=== PATIENT | male | born 1955 | race Caucasian/White ===

== ENCOUNTER 2018-03-25 12:44 | Emergency (ER) | payer OTHER, SELFPAY ==
[2018-03-25] VITALS (7 sets, daily range): BP systolic 92–139; BP diastolic 74–89; PULSE 58–93; RESP 16–19; TEMP 36.5; O2SAT 94–100; BMI 32.1
--- NOTE | 2018-03-25 12:51 | DI.RAD.S_ITS ---
PROCEDURE: XR CHEST 1V INDICATIONS: chest pain TECHNIQUE: One view of the chest was acquired. COMPARISON: [facility], , CHEST 1 VIEW, 02/04/2016, 0:28. FINDINGS: Surgical changes and devices: None. Lungs and pleura: Lungs are clear. No pleural effusions or pneumothorax. Mediastinum: Mediastinal contours appear normal. Heart size is normal. Bones and chest wall: No suspicious bony lesions. Overlying soft tissues appear unremarkable. IMPRESSION: Reduction of inspiratory volume, mild crowding of the bronchovascular markings, a source of chest pain is not seen. Dictated by: Luis Angel Ashley M.D. on 03/25/2018 at 13:25 Approved by: Luis Angel Ashley M.D. on 03/25/2018 at 13:26
--- NOTE | 2018-03-25 13:07 | ED.CHESTPAIN ---
HPI - Chest Pain General Chief Complaint: Chest Pain Stated Complaint: CHEST HEAVINESS Time Seen by Provider: 03/25/18 13:00 Source: patient and family Mode of arrival: ambulatory Limitations: no limitations History of Present Illness HPI narrative: 62-year-old male, nonsmoker with history of hypertension and hyperlipidemia presents with his in the chief complaint of retrosternal chest pain which started this afternoon while shoveling snow. He complains of 4/10 pressure like pain that radiates to his right shoulder in the absence of other cardiac equivalent such as nausea, diaphoresis or vomiting. He had recently had an outpatient physical which noted an elevated cardiac CRP at which point his (a nurse) requested the patient be placed on aspirin, have access to nitroglycerin, and gain a cardiac referral. Patient took 2 nitros prior to arrival and had resolution of symptoms The patient has never had a heart catheterization or stent and his last stress test was many years ago. The patient has been asymptomatic since walking through the door. MD complaint: chest pain Onset (ago): hour(s) Duration: now resolved Onset: during exertion Pain location: substernal Severity: moderate Severity scale (1-10): 4 Quality: tightness Pain radiation: back Relieving factors: nitroglycerin and rest Exacerbating factors: exertion Treatments prior to arrival chest pain: aspirin and nitroglycerin Related Data Home Medications Medication Instructions Recorded Confirmed Vitamin D3 1 tab PO DAILY 03/25/18 03/25/18 allopurinol 300 mg PO DAILY 03/25/18 03/25/18 aspirin 81 mg PO DAILY 03/25/18 03/25/18 hydrochlorothiazide 25 mg PO DAILY 03/25/18 03/25/18 krill oil 1 cap PO DAILY 03/25/18 03/25/18 lisinopril 40 mg PO DAILY 03/25/18 03/25/18 simvastatin 40 mg PO BEDTIME 03/25/18 03/25/18 turmeric 1 tab PO DAILY 03/25/18 03/25/18 Allergies Allergy/AdvReac Type Severity Reaction Status Date / Time No Known Drug Allergies Allergy Verified 03/25/18 12:48 Review of Systems Constitutional Denies chills, Denies fever(s), Denies lethargy and Denies weakness Eyes Denies change in vision, Denies eye discharge, Denies irritation and Denies loss of vision ENT Ears, Nose, Mouth, and Throat: Denies change in voice, Denies neck pain and Denies sore throat Cardiovascular Reports chest pain, Denies irregular heart rhythm, Denies lightheadedness, Denies palpitations, Denies dyspnea, Denies dyspnea on exertion and Denies orthopnea Respiratory Denies cough, Denies dyspnea, Denies dyspnea on exertion and Denies wheezing Gastrointestinal Gastrointestinal: Denies abdominal pain, Denies change in bowel habits, Denies diarrhea, Denies nausea and Denies vomiting Genitourinary Denies hematuria, Denies flank pain, Denies urinary incontinence and Denies urinary urgency Musculoskeletal Denies neck pain Integumentary/Breasts Denies pruritus, Denies erythema, Denies rash and Denies wounds Neurologic Denies confusion, Denies loss of vision and Denies weakness Psychiatric Denies anxiety, Denies confusion, Denies depression, Denies homicidal ideation and Denies suicidal ideation Endocrine Denies palpitations Hematologic/Lymphatic Denies easy bruising Allergic/Immunologic Denies wheezing PFSH Social History Smoking Status: Never smoker Social History Smoking Status: Never smoker Exam Narrative Exam Narrative: GENERAL: This is a well-nourished, well-developed patient, in mild distress. HEAD: Atraumatic. Normocephalic. No temporal or scalp tenderness. EYES: Pupils equal round and reactive. Extraocular motions intact. No scleral icterus. No injection or drainage. ENT: Nose without bleeding, purulent drainage or septal hematoma. Throat without erythema, tonsillar hypertrophy or exudate. Uvula midline. Airway patent. NECK: Trachea midline. No JVD or lymphadenopathy. Supple, nontender, no meningeal signs. CARDIOVASCULAR: Regular rate and rhythm without murmurs, gallops, or rubs. RESPIRATORY: Clear to auscultation. Breath sounds equal bilaterally. No wheezes, rales, or rhonchi. GASTROINTESTINAL: Abdomen soft, non-tender, nondistended. No hepato-splenomegaly, or palpable masses. No guarding. EXTREMITIES: No clubbing, cyanosis, or edema. No joint tenderness, effusion, or edema noted. BACK: Nontender without deformity or crepitance. No flank tenderness. NEURO: AOx3. SKIN: No rash or erythema. Initial Vital Signs Initial Vital Signs: Vital Signs Temperature 97.7 F 03/25/18 12:48 Pulse Rate 93 H 03/25/18 12:48 Respiratory Rate 16 03/25/18 12:48 Blood Pressure 139/82 03/25/18 12:48 Pulse Oximetry 95 03/25/18 12:48 Scores HEART Score Heart Score history: Highly Suspicious Heart Score EKG: Normal Heart Score Age: 45-64 years old Heart Score risk factors: 1-2 risk factors Heart Score troponin: < or = to normal limit Heart Score Total: 4 Course Orders Ordered: ED Orders 03/25/18 12:50 EKG-12 Lead Routine EKG-12 Lead Stat 03/25/18 12:51 XR chest 1V Stat 03/25/18 13:10 Complete Blood Count AUTO DIFF Stat Comprehensive Metabolic Panel Stat Lipase Stat Partial Thromboplastin Time Stat Prothrombin Time INR Stat Troponin & CK Cardiac Panel Stat 03/25/18 15:40 Troponin I Stat Discontinued Medications Aspirin (Aspirin Chew) 324 mg PO NOW ONE Stop: 03/25/18 13:33 Last Admin: 03/25/18 14:07 Dose: 324 mg Metoprolol Tartrate (Lopressor) 5 mg IV Q5M [facility] Stop: 03/25/18 13:56 Last Admin: 03/25/18 14:30 Dose: Not Given Admin: 03/25/18 14:30 Dose: Not Given Admin: 03/25/18 14:30 Dose: 5 mg Reevaluation(s) Reevaluation #1: Patient continues to have no pain in the emergency department. After normal EKG and initial troponin in normal range a call was placed to our hospitalist whom promptly accepted the patient. A secondary call to [place] is placed and they request the patient be transferred to 1 of their contracted facilities. They have arranged for the patient to be transferred to [place] in [place] and will be transported by ALS for cardiac monitoring. The patient remains chest pain-free Vital Signs - 8 hr 03/25/18 12:48 03/25/18 14:00 03/25/18 14:30 Temperature 97.7 F Pulse Rate 93 H 74 60 Respiratory Rate 16 18 16 Blood Pressure 139/82 Blood Pressure [Left Arm] 124/74 120/79 Pulse Oximetry 95 94 95 03/25/18 15:00 03/25/18 16:00 03/25/18 17:00 Temperature Pulse Rate 80 71 58 L Respiratory Rate 19 16 Blood Pressure Blood Pressure [Left Arm] 137/86 131/89 92/75 Pulse Oximetry 96 100 95 03/25/18 17:40 Temperature Pulse Rate 69 Respiratory Rate 16 Blood Pressure 129/84 Blood Pressure [Left Arm] Pulse Oximetry 97 MDM - Chest Pain Medical Records Data Attestation: I reviewed the patient's medical records. Lab Data Attestation: I reviewed the patient's lab results. Result diagrams: 03/25/18 13:10 03/25/18 13:10 Lab Results 03/25/18 03/25/18 03/25/18 Range/Units 13:10 13:10 13:10 WBC 4.9 (4.5-11.0) X10^3/uL RBC 4.28 L (4.5-5.9) X10^6/uL Hgb 13.8 (13.5-17.5) g/dL Hct 39.4 L (41-53) % MCV 92.1 (80-100) fL MCH 32.3 (26-34) PG MCHC 35.0 (30-36) % RDW 12.9 (11.6-14.8) % Plt Count 174 (150-400) X10^3/uL Neut % (Auto) 67.1 (50-75) % Lymph % (Auto) 24.3 L (25-40) % [place] % (Auto) 5.8 (3-14) % Eos % (Auto) 2.3 (2-4) % Baso % (Auto) 0.5 (0-2) % Neut # (Auto) 3300 (4864-6764) /uL Lymph # (Auto) 1200 (0385-4044) /uL [place] # (Auto) 300 (0-900) /uL Eos # (Auto) 100 (0-450) /uL Baso # (Auto) 0 (0-100) /uL PT 11.7 (10.1-12.7) SECONDS INR 1.0 (0.9-1.3) APTT 31 (26.4-36.2) SECONDS Sodium 137 (137-145) mmol/L Potassium 3.8 (3.4-5.1) mmol/L Chloride 98 (98-107) mmol/L Carbon Dioxide 24 (22-32) mmol/L BUN 25 H (9-20) mg/dL Creatinine 0.80 (0.66-1.25) mg/dL Estimated GFR > 60.0 (>60) mL/min BUN/Creatinine Ratio 31.3 H (6-22) Glucose 158 H (80-110) mg/dL Calcium 9.8 (8.4-10.2) mg/dL Total Bilirubin 0.6 (0.2-1.3) mg/dL AST 54 (17-59) IU/L ALT 60 (21-72) IU/L Alkaline Phosphatase 85 (38-126) U/L Total Creatine Kinase 116 (55-170) U/L CK-MB (CK-2) 1.20 (<2.37) ng/mL CK-MB (CK-2) Rel Index 1.0 L (1.5-5.0) % Troponin I < 0.012 (0.01-0.034) ng/mL Total Protein 7.4 (6.3-8.2) g/dL Albumin 4.7 (3.5-5.0) g/dL Globulin 2.7 (1.7-4.1) g/dL Albumin/Globulin Ratio 1.7 (1.0-2.8) Lipase 70 (23-300) U/L 03/25/18 Range/Units 15:40 WBC (4.5-11.0) X10^3/uL RBC (4.5-5.9) X10^6/uL Hgb (13.5-17.5) g/dL Hct (41-53) % MCV (80-100) fL MCH (26-34) PG MCHC (30-36) % RDW (11.6-14.8) % Plt Count (150-400) X10^3/uL Neut % (Auto) (50-75) % Lymph % (Auto) (25-40) % [place] % (Auto) (3-14) % Eos % (Auto) (2-4) % Baso % (Auto) (0-2) % Neut # (Auto) (6800-3974) /uL Lymph # (Auto) (3116-9286) /uL [place] # (Auto) (0-900) /uL Eos # (Auto) (0-450) /uL Baso # (Auto) (0-100) /uL PT (10.1-12.7) SECONDS INR (0.9-1.3) APTT (26.4-36.2) SECONDS Sodium (137-145) mmol/L Potassium (3.4-5.1) mmol/L Chloride (98-107) mmol/L Carbon Dioxide (22-32) mmol/L BUN (9-20) mg/dL Creatinine (0.66-1.25) mg/dL Estimated GFR (>60) mL/min BUN/Creatinine Ratio (6-22) Glucose (80-110) mg/dL Calcium (8.4-10.2) mg/dL Total Bilirubin (0.2-1.3) mg/dL AST (17-59) IU/L ALT (21-72) IU/L Alkaline Phosphatase (38-126) U/L Total Creatine Kinase (55-170) U/L CK-MB (CK-2) (<2.37) ng/mL CK-MB (CK-2) Rel Index (1.5-5.0) % Troponin I < 0.012 (0.01-0.034) ng/mL Total Protein (6.3-8.2) g/dL Albumin (3.5-5.0) g/dL Globulin (1.7-4.1) g/dL Albumin/Globulin Ratio (1.0-2.8) Lipase (23-300) U/L Imaging Data Chest x-ray: Radiologist's impression: [address] [address] XRay Report Signed Patient: Bobo Barclay JUDE#: [id number] : 5Acct:[id number] Age/Sex: 62 / MDate of Service: 03/25/18 Loc: ED Accession Number: [id number] Procedure: XR chest 1V Ordering Provider: Elian Farfan D.O. PROCEDURE: XR CHEST 1V INDICATIONS: chest pain TECHNIQUE: One view of the chest was acquired. COMPARISON: [facility], CHEST 1 VIEW, 02/04/2016, 0:28. FINDINGS: Surgical changes and devices: None. Lungs and pleura: Lungs are clear. No pleural effusions or pneumothorax. Mediastinum: Mediastinal contours appear normal. Heart size is normal. Bones and chest wall: No suspicious bony lesions. Overlying soft tissues appear unremarkable. IMPRESSION: Reduction of inspiratory volume, mild crowding of the bronchovascular markings, a source of chest pain is not seen. Dictated by: Luis Angel Ashley M.D. on 03/25/2018 at 13:25 Approved by: Luis Angel Ashley M.D. on 03/25/2018 at 13:26 ECG Data Attestation: I personally reviewed and interpreted this ECG as follows: Prior ECG tracings: not available for review Interpretation: EKG is normal sinus rhythm rate [71 ] and free of any signs of ischemia or ectopy. No ST segmental elevation or depression. No T wave inversions repeat EKG< no change Discharge Plan Departure Patient Disposition: [facility] Clinical Impression: Stable angina Discharge Date/Time: 03/25/18 17:44 Interventions: ED Discharge Assessment Last Done: 03/25/18 17:40 Prescriptions: No Action simvastatin 80 mg Tablet 40 mg PO BEDTIME RF: 0 allopurinol 300 mg Tablet 300 mg PO DAILY RF: 0 hydrochlorothiazide 25 mg Tablet 25 mg PO DAILY RF: 0 lisinopril 40 mg Tablet 40 mg PO DAILY RF: 0 aspirin 81 mg Tablet,Delayed Release (Dr/Ec) 81 mg PO DAILY RF: 0 Vitamin D3 1 tab PO DAILY RF: 0 krill oil 1 cap PO DAILY RF: 0 turmeric 1 tab PO DAILY RF: 0
[2018-03-25 13:20] LABS: Add Manual Diff / Slide Review NO; Basophils Absolute Auto 0 /uL (0-100); Basophils Percent Auto 0.5 % (0-2); Eosinophils Absolute Auto 100 /uL (0-450); Eosinophils Percent Auto 2.3 % (2-4); Hematocrit 39.4 % (41-53); Hemoglobin 13.8 g/dL (13.5-17.5); Lymphocytes Absolute Auto 1200 /uL (1100-4500); Lymphocytes Percent Auto 24.3 % (25-40); Mean Corpuscular Hemoglobin 32.3 PG (26-34); Mean Corpuscular Volume 92.1 fL (80-100); Monocytes Absolute Auto 300 /uL (0-900); Monocytes Percent Auto 5.8 % (3-14); Neutrophils Absolute Auto 3300 /uL (1500-7000); Neutrophils Percent Auto 67.1 % (50-75); Platelet Count 174 X10^3/uL (150-400); Red Blood Cell Count 4.28 X10^6/uL (4.5-5.9); Red Cell Distribution Width 12.9 % (11.6-14.8); White Blood Cell Count 4.9 X10^3/uL (4.5-11.0)
[2018-03-25 13:27] LABS: Prothrombin Time 11.7 SECONDS (10.1-12.7)
[2018-03-25 13:29] LABS: PTT Partial Thromboplastin Tim 31 SECONDS (26.4-36.2)
[2018-03-25 13:39] LABS: Alanine Aminotransferase 60 IU/L (21-72); Albumin 4.7 g/dL (3.5-5.0); Albumin Globulin Ratio 1.7 (1.0-2.8); Alkaline Phosphatase 85 U/L (38-126); Aspartate Aminotransferase 54 IU/L (17-59); BUN Creatinine Ratio 31.3 (6-22); Bilirubin Total 0.6 mg/dL (0.2-1.3); Blood Urea Nitrogen 25 mg/dL (9-20); Calcium 9.8 mg/dL (8.4-10.2); Carbon Dioxide 24 mmol/L (22-32); Chloride 98 mmol/L (98-107); Creatine Kinase 116 U/L (55-170); Estimated Glomerular Filt Rate > 60.0 mL/min (>60); Globulin 2.7 g/dL (1.7-4.1); Glucose 158 mg/dL (80-110); HEMOLYSIS < 15 (0-50); Lipase 70 U/L (23-300); Potassium 3.8 mmol/L (3.4-5.1); Sodium 137 mmol/L (137-145); Total Protein 7.4 g/dL (6.3-8.2)
[2018-03-25 13:52] LABS: Troponin I < 0.012 ng/mL (0.01-0.034)
[2018-03-25] MEDS: ASPIRIN 81 MG TAB 324 MG PO (14:07)
[2018-03-25] MEDS: METOPROLOL TARTRATE 5 MG/5 ML INJ IV (14:30)
--- NOTE | 2018-03-25 15:41 | ED_ITS ---
HPI - Chest Pain General Chief Complaint: Chest Pain Stated Complaint: CHEST HEAVINESS Time Seen by Provider: 03/25/18 13:00 Source: patient and family Mode of arrival: ambulatory Limitations: no limitations History of Present Illness HPI narrative: 62-year-old male, nonsmoker with history of hypertension and hyperlipidemia presents with his in the chief complaint of retrosternal chest pain which started this afternoon while shoveling snow. He complains of 4/10 pressure like pain that radiates to his right shoulder in the absence of other cardiac equivalent such as nausea, diaphoresis or vomiting. He had recently had an outpatient physical which noted an elevated cardiac CRP at which point his (a nurse) requested the patient be placed on aspirin, have access to nitroglycerin, and gain a cardiac referral. Patient took 2 nitros prior to arrival and had resolution of symptoms The patient has never had a heart catheterization or stent and his last stress test was many years ago. The patient has been asymptomatic since walking through the door. MD complaint: chest pain Onset (ago): hour(s) Duration: now resolved Onset: during exertion Pain location: substernal Severity: moderate Severity scale (1-10): 4 Quality: tightness Pain radiation: back Relieving factors: nitroglycerin and rest Exacerbating factors: exertion Treatments prior to arrival chest pain: aspirin and nitroglycerin Related Data Home Medications Medication Instructions Recorded Confirmed Vitamin D3 1 tab PO DAILY 03/25/18 03/25/18 allopurinol 300 mg PO DAILY 03/25/18 03/25/18 aspirin 81 mg PO DAILY 03/25/18 03/25/18 hydrochlorothiazide 25 mg PO DAILY 03/25/18 03/25/18 krill oil 1 cap PO DAILY 03/25/18 03/25/18 lisinopril 40 mg PO DAILY 03/25/18 03/25/18 simvastatin 40 mg PO BEDTIME 03/25/18 03/25/18 turmeric 1 tab PO DAILY 03/25/18 03/25/18 Allergies Allergy/AdvReac Type Severity Reaction Status Date / Time No Known Drug Allergies Allergy Verified 03/25/18 12:48 Review of Systems Constitutional Denies chills, Denies fever(s), Denies lethargy and Denies weakness Eyes Denies change in vision, Denies eye discharge, Denies irritation and Denies loss of vision ENT Ears, Nose, Mouth, and Throat: Denies change in voice, Denies neck pain and Denies sore throat Cardiovascular Reports chest pain, Denies irregular heart rhythm, Denies lightheadedness, Denies palpitations, Denies dyspnea, Denies dyspnea on exertion and Denies orthopnea Respiratory Denies cough, Denies dyspnea, Denies dyspnea on exertion and Denies wheezing Gastrointestinal Gastrointestinal: Denies abdominal pain, Denies change in bowel habits, Denies diarrhea, Denies nausea and Denies vomiting Genitourinary Denies hematuria, Denies flank pain, Denies urinary incontinence and Denies urinary urgency Musculoskeletal Denies neck pain Integumentary/Breasts Denies pruritus, Denies erythema, Denies rash and Denies wounds Neurologic Denies confusion, Denies loss of vision and Denies weakness Psychiatric Denies anxiety, Denies confusion, Denies depression, Denies homicidal ideation and Denies suicidal ideation Endocrine Denies palpitations Hematologic/Lymphatic Denies easy bruising Allergic/Immunologic Denies wheezing PFSH Social History Smoking Status: Never smoker Social History Smoking Status: Never smoker Exam Narrative Exam Narrative: GENERAL: This is a well-nourished, well-developed patient, in mild distress. HEAD: Atraumatic. Normocephalic. No temporal or scalp tenderness. EYES: Pupils equal round and reactive. Extraocular motions intact. No scleral icterus. No injection or drainage. ENT: Nose without bleeding, purulent drainage or septal hematoma. Throat without erythema, tonsillar hypertrophy or exudate. Uvula midline. Airway patent. NECK: Trachea midline. No JVD or lymphadenopathy. Supple, nontender, no meningeal signs. CARDIOVASCULAR: Regular rate and rhythm without murmurs, gallops, or rubs. RESPIRATORY: Clear to auscultation. Breath sounds equal bilaterally. No wheezes, rales, or rhonchi. GASTROINTESTINAL: Abdomen soft, non-tender, nondistended. No hepato- splenomegaly, or palpable masses. No guarding. EXTREMITIES: No clubbing, cyanosis, or edema. No joint tenderness, effusion, or edema noted. BACK: Nontender without deformity or crepitance. No flank tenderness. NEURO: AOx3. SKIN: No rash or erythema. Initial Vital Signs Initial Vital Signs: Vital Signs Temperature 97.7 F 03/25/18 12:48 Pulse Rate 93 H 03/25/18 12:48 Respiratory Rate 16 03/25/18 12:48 Blood Pressure 139/82 03/25/18 12:48 Pulse Oximetry 95 03/25/18 12:48 Scores HEART Score Heart Score history: Highly Suspicious Heart Score EKG: Normal Heart Score Age: 45-64 years old Heart Score risk factors: 1-2 risk factors Heart Score troponin: < or = to normal limit Heart Score Total: 4 Course Orders Ordered: ED Orders 03/25/18 12:50 EKG-12 Lead Routine EKG-12 Lead Stat 03/25/18 12:51 XR chest 1V Stat 03/25/18 13:10 Complete Blood Count AUTO DIFF Stat Comprehensive Metabolic Panel Stat Lipase Stat Partial Thromboplastin Time Stat Prothrombin Time INR Stat Troponin & CK Cardiac Panel Stat 03/25/18 15:40 Troponin I Stat Discontinued Medications Aspirin (Aspirin Chew) 324 mg PO NOW ONE Stop: 03/25/18 13:33 Last Admin: 03/25/18 14:07 Dose: 324 mg Metoprolol Tartrate (Lopressor) 5 mg IV Q5M [facility] Stop: 03/25/18 13:56 Last Admin: 03/25/18 14:30 Dose: Not Given Admin: 03/25/18 14:30 Dose: Not Given Admin: 03/25/18 14:30 Dose: 5 mg Reevaluation(s) Reevaluation #1: Patient continues to have no pain in the emergency department. After normal EKG and initial troponin in normal range a call was placed to our hospitalist whom promptly accepted the patient. A secondary call to [place] is placed and they request the patient be transferred to 1 of their contracted facilities. They have arranged for the patient to be transferred to [place] in [place] and will be transported by ALS for cardiac monitoring. The patient remains chest pain-free Vital Signs - 8 hr 03/25/18 12:48 03/25/18 14:00 03/25/18 14:30 Temperature 97.7 F Pulse Rate 93 H 74 60 Respiratory Rate 16 18 16 Blood Pressure 139/82 Blood Pressure [Left Arm] 124/74 120/79 Pulse Oximetry 95 94 95 03/25/18 15:00 03/25/18 16:00 03/25/18 17:00 Temperature Pulse Rate 80 71 58 L Respiratory Rate 19 16 Blood Pressure Blood Pressure [Left Arm] 137/86 131/89 92/75 Pulse Oximetry 96 100 95 03/25/18 17:40 Temperature Pulse Rate 69 Respiratory Rate 16 Blood Pressure 129/84 Blood Pressure [Left Arm] Pulse Oximetry 97 MDM - Chest Pain Medical Records Data Attestation: I reviewed the patient's medical records. Lab Data Attestation: I reviewed the patient's lab results. Result diagrams: 03/25/18 13:10 03/25/18 13:10 Lab Results 03/25/18 03/25/18 03/25/18 Range/Units 13:10 13:10 13:10 WBC 4.9 (4.5-11.0) X10^3/uL RBC 4.28 L (4.5-5.9) X10^6/uL Hgb 13.8 (13.5-17.5) g/dL Hct 39.4 L (41-53) % MCV 92.1 (80-100) fL MCH 32.3 (26-34) PG MCHC 35.0 (30-36) % RDW 12.9 (11.6-14.8) % Plt Count 174 (150-400) X10^3/uL Neut % (Auto) 67.1 (50-75) % Lymph % (Auto) 24.3 L (25-40) % [place] % (Auto) 5.8 (3-14) % Eos % (Auto) 2.3 (2-4) % Baso % (Auto) 0.5 (0-2) % Neut # (Auto) 3300 (5962-0449) /uL Lymph # (Auto) 1200 (0466-5930) /uL [place] # (Auto) 300 (0-900) /uL Eos # (Auto) 100 (0-450) /uL Baso # (Auto) 0 (0-100) /uL PT 11.7 (10.1-12.7) SECONDS INR 1.0 (0.9-1.3) APTT 31 (26.4-36.2) SECONDS Sodium 137 (137-145) mmol/L Potassium 3.8 (3.4-5.1) mmol/L Chloride 98 (98-107) mmol/L Carbon Dioxide 24 (22-32) mmol/L BUN 25 H (9-20) mg/dL Creatinine 0.80 (0.66-1.25) mg/dL Estimated GFR > 60.0 (>60) mL/min BUN/Creatinine Ratio 31.3 H (6-22) Glucose 158 H (80-110) mg/dL Calcium 9.8 (8.4-10.2) mg/dL Total Bilirubin 0.6 (0.2-1.3) mg/dL AST 54 (17-59) IU/L ALT 60 (21-72) IU/L Alkaline Phosphatase 85 (38-126) U/L Total Creatine Kinase 116 (55-170) U/L CK-MB (CK-2) 1.20 (<2.37) ng/mL CK-MB (CK-2) Rel Index 1.0 L (1.5-5.0) % Troponin I < 0.012 (0.01-0.034) ng/mL Total Protein 7.4 (6.3-8.2) g/dL Albumin 4.7 (3.5-5.0) g/dL Globulin 2.7 (1.7-4.1) g/dL Albumin/Globulin Ratio 1.7 (1.0-2.8) Lipase 70 (23-300) U/L 03/25/18 Range/Units 15:40 WBC (4.5-11.0) X10^3/uL RBC (4.5-5.9) X10^6/uL Hgb (13.5-17.5) g/dL Hct (41-53) % MCV (80-100) fL MCH (26-34) PG MCHC (30-36) % RDW (11.6-14.8) % Plt Count (150-400) X10^3/uL Neut % (Auto) (50-75) % Lymph % (Auto) (25-40) % [place] % (Auto) (3-14) % Eos % (Auto) (2-4) % Baso % (Auto) (0-2) % Neut # (Auto) (5414-2231) /uL Lymph # (Auto) (0137-5803) /uL [place] # (Auto) (0-900) /uL Eos # (Auto) (0-450) /uL Baso # (Auto) (0-100) /uL PT (10.1-12.7) SECONDS INR (0.9-1.3) APTT (26.4-36.2) SECONDS Sodium (137-145) mmol/L Potassium (3.4-5.1) mmol/L Chloride (98-107) mmol/L Carbon Dioxide (22-32) mmol/L BUN (9-20) mg/dL Creatinine (0.66-1.25) mg/dL Estimated GFR (>60) mL/min BUN/Creatinine Ratio (6-22) Glucose (80-110) mg/dL Calcium (8.4-10.2) mg/dL Total Bilirubin (0.2-1.3) mg/dL AST (17-59) IU/L ALT (21-72) IU/L Alkaline Phosphatase (38-126) U/L Total Creatine Kinase (55-170) U/L CK-MB (CK-2) (<2.37) ng/mL CK-MB (CK-2) Rel Index (1.5-5.0) % Troponin I < 0.012 (0.01-0.034) ng/mL Total Protein (6.3-8.2) g/dL Albumin (3.5-5.0) g/dL Globulin (1.7-4.1) g/dL Albumin/Globulin Ratio (1.0-2.8) Lipase (23-300) U/L Imaging Data Chest x-ray: Radiologist's impression: [address] [address] XRay Report Signed Patient: Bobo Barclay JUDE#: [id number] : 5Acct:[id number] Age/Sex: 62 / MDate of Service: 03/25/18 Loc: ED Accession Number: [id number] Procedure: XR chest 1V Ordering Provider: Elian Farfan D.O. PROCEDURE: XR CHEST 1V INDICATIONS: chest pain TECHNIQUE: One view of the chest was acquired. COMPARISON: [facility], CHEST 1 VIEW, 02/04/2016, 0:28. FINDINGS: Surgical changes and devices: None. Lungs and pleura: Lungs are clear. No pleural effusions or pneumothorax. Mediastinum: Mediastinal contours appear normal. Heart size is normal. Bones and chest wall: No suspicious bony lesions. Overlying soft tissues appear unremarkable. IMPRESSION: Reduction of inspiratory volume, mild crowding of the bronchovascular markings, a source of chest pain is not seen. Dictated by: Luis Angel Ashley M.D. on 03/25/2018 at 13:25 Approved by: Luis Angel Ashley M.D. on 03/25/2018 at 13:26 ECG Data Attestation: I personally reviewed and interpreted this ECG as follows: Prior ECG tracings: not available for review Interpretation: EKG is normal sinus rhythm rate [71 ] and free of any signs of ischemia or ectopy. No ST segmental elevation or depression. No T wave inversions repeat EKG< no change Discharge Plan Departure Patient Disposition: [facility] Clinical Impression: Stable angina Discharge Date/Time: 03/25/18 17:44 Interventions: ED Discharge Assessment Last Done: 03/25/18 17:40 Prescriptions: No Action simvastatin 80 mg Tablet 40 mg PO BEDTIME RF: 0 allopurinol 300 mg Tablet 300 mg PO DAILY RF: 0 hydrochlorothiazide 25 mg Tablet 25 mg PO DAILY RF: 0 lisinopril 40 mg Tablet 40 mg PO DAILY RF: 0 aspirin 81 mg Tablet,Delayed Release (Dr/Ec) 81 mg PO DAILY RF: 0 Vitamin D3 1 tab PO DAILY RF: 0 krill oil 1 cap PO DAILY RF: 0 turmeric 1 tab PO DAILY RF: 0
[2018-03-25 16:10] LABS: Troponin I < 0.012 ng/mL (0.01-0.034)
--- NOTE | 2018-03-25 16:28 | PC.NURSE ---
Chest pain while shovelling snow this morning, now resolved.
== END 2018-03-25 17:44 | disposition short-term general hospital (02) ==
PROVIDERS: Emergency Provider Emergency Medicine
DX: I20.8 Other forms of angina pectoris (principal)
CPT/HCPCS: 36415; 36591; 71045; 80053; 82550; 82553; 83690; 84484; 85025; 85610; 85730; 93005; 96374; 99283; 99285

== ENCOUNTER → 2018-07-02 10:34 | Outpatient (CLI) | payer OTHER, SELFPAY ==
[2018-07-02 12:17] LABS: BUN Creatinine Ratio 27.1 (6-22); Blood Urea Nitrogen 19 mg/dL (9-20); Estimated Glomerular Filt Rate > 60.0 mL/min (>60)
[2018-07-02 12:50] LABS: Vitamin D 25 Hydroxy (D3) 37.4 ng/mL (30.0-100.0)
== END ==
PROVIDERS: Visit Provider Student in an Organized Health Care Education/Training Program
DX: I10 Essential (primary) hypertension (principal); R73.09 Other abnormal glucose; E66.9 Obesity, unspecified; E55.9 Vitamin D deficiency, unspecified
CPT/HCPCS: 36415; 82306; 82565; 83036; 84520

== ENCOUNTER → 2019-04-09 10:03 | Outpatient (CLI) | payer MEDICARE, SELFPAY ==
[2019-04-09 11:32] LABS: BUN Creatinine Ratio 22.9 (6-22); Blood Urea Nitrogen 16 mg/dL (9-20); Carbon Dioxide 30 mmol/L (22-32); Chloride 100 mmol/L (98-107); Cholesterol 217 mg/dL (140-199); Estimated Glomerular Filt Rate > 60.0 mL/min (>60); Glucose 124 mg/dL (80-110); HDL Cholesterol 46 mg/dL (40-60); HEMOLYSIS < 15 (0-50); LDL Cholesterol Calculated 104 mg/dL (<100); Potassium 3.7 mmol/L (3.4-5.1); Sodium 139 mmol/L (137-145); Triglycerides 334 mg/dL (35-150); Uric Acid 6.9 mg/dL (3.5-8.5)
[2019-04-09 12:09] LABS: Prostate Specific Antigen < 0.064 ng/mL (0.10-4.00)
== END ==
PROVIDERS: PCP Student in an Organized Health Care Education/Training Program; Referring Provider Student in an Organized Health Care Education/Training Program; Visit Provider Student in an Organized Health Care Education/Training Program
DX: I10 Essential (primary) hypertension (principal); E78.5 Hyperlipidemia, unspecified; M10.9 Gout, unspecified; Z85.46 Personal history of malignant neoplasm of prostate
CPT/HCPCS: 36415; 80048; 80061; 84153; 84550

== ENCOUNTER → 2019-05-31 10:33 | Outpatient (CLI) | payer MEDICARE, SELFPAY ==
[2019-05-31 12:02] LABS: Uric Acid 6.3 mg/dL (3.5-8.5)
== END ==
PROVIDERS: PCP Student in an Organized Health Care Education/Training Program; Referring Provider Nurse Practitioner; Visit Provider Nurse Practitioner
DX: M10.9 Gout, unspecified (principal)
CPT/HCPCS: 36415; 84550

== ENCOUNTER → 2020-04-11 10:55 | Outpatient (CLI) | payer MEDICARE, SELFPAY ==
[2020-04-11 13:18] LABS: BUN Creatinine Ratio 21.4 (6-22); Blood Urea Nitrogen 15 mg/dL (9-20); Calcium 10.1 mg/dL (8.4-10.2); Carbon Dioxide 31 mmol/L (22-32); Chloride 97 mmol/L (98-107); Cholesterol 194 mg/dL (140-199); Estimated Glomerular Filt Rate > 60.0 mL/min (>60); Glucose 126 mg/dL (80-110); HDL Cholesterol 59 mg/dL (40-60); HEMOLYSIS < 15 (0-50); LDL Cholesterol Calculated 87 mg/dL (<100); Potassium 3.5 mmol/L (3.4-5.1); Sodium 135 mmol/L (137-145); Triglycerides 242 mg/dL (35-150)
[2020-04-11 13:44] LABS: Prostate Specific Antigen < 0.064 ng/mL (0.10-4.00)
== END ==
PROVIDERS: PCP Student in an Organized Health Care Education/Training Program; Referring Provider Student in an Organized Health Care Education/Training Program; Visit Provider Student in an Organized Health Care Education/Training Program
DX: E78.5 Hyperlipidemia, unspecified (principal); Z85.46 Personal history of malignant neoplasm of prostate; I10 Essential (primary) hypertension
CPT/HCPCS: 36415; 80048; 80061; 84153

== ENCOUNTER → 2021-04-03 10:42 | Outpatient (CLI) | payer MEDICARE, SELFPAY ==
[2021-04-03 11:43] LABS: Alanine Aminotransferase 92 IU/L (<50); Albumin 4.9 g/dL (3.5-5.0); Albumin Globulin Ratio 1.6 (1.0-2.8); Alkaline Phosphatase 102 U/L (38-126); Aspartate Aminotransferase 101 IU/L (17-59); BUN Creatinine Ratio 21.4 (6-22); Bilirubin Total 0.5 mg/dL (0.2-1.3); Blood Urea Nitrogen 15 mg/dL (9-20); Calcium 10.2 mg/dL (8.4-10.2); Carbon Dioxide 33 mmol/L (22-32); Chloride 99 mmol/L (98-107); Estimated Glomerular Filt Rate > 60.0 mL/min (>60); Glucose 119 mg/dL (80-110); HEMOLYSIS < 15 (0-50); Potassium 3.8 mmol/L (3.4-5.1); Sodium 139 mmol/L (137-145); Total Protein 7.9 g/dL (6.3-8.2)
[2021-04-03 12:11] LABS: Prostate Specific Antigen < 0.064 ng/mL (0.10-4.00)
== END ==
PROVIDERS: PCP Student in an Organized Health Care Education/Training Program; Referring Provider Student in an Organized Health Care Education/Training Program; Visit Provider Student in an Organized Health Care Education/Training Program
DX: R73.09 Other abnormal glucose (principal); Z85.46 Personal history of malignant neoplasm of prostate; I10 Essential (primary) hypertension; E66.9 Obesity, unspecified; M10.9 Gout, unspecified; E78.5 Hyperlipidemia, unspecified
CPT/HCPCS: 36415; 80053; 83036; 84153

== ENCOUNTER → 2021-05-11 09:44 | Outpatient (CLI) | payer MEDICARE, SELFPAY ==
--- NOTE | 2021-05-11 09:45 | DI.US.S_ITS ---
PROCEDURE: US ABDOMEN LIMITED INDICATIONS: Elevated LFT TECHNIQUE: Real-time focused scanning was performed of the abdomen, with image documentation. COMPARISON: None. FINDINGS: Liver is normal in size. Liver has a diffusely increased echotexture which typically represents fatty infiltration; however, finding is nonspecific and other etiologies including hepatic cirrhosis can have a similar appearance. Please correlate with clinical and laboratory findings. No focal hepatic mass lesions. Gallbladder is sonographically normal. No gallstones. No gallbladder wall thickening. No pericholecystic fluid. No sonographic Hodge sign. Biliary tree is nondilated. Common bile duct measures 4.3 millimeters. Pancreas obscured by bowel gas. IMPRESSION: 1. Echogenic liver. Finding typically represents fatty infiltration; however, finding is nonspecific and correlation with clinical and laboratory findings is recommended to exclude other etiologies including hepatic cirrhosis. 2. No focal hepatic mass. Dictated by: Tania Rosales MD, PhD on 05/11/2021 at 11:26 Approved by: Tania Rosales MD, PhD on 05/11/2021 at 11:28
== END ==
PROVIDERS: PCP Student in an Organized Health Care Education/Training Program; Referring Provider Student in an Organized Health Care Education/Training Program; Visit Provider Student in an Organized Health Care Education/Training Program
DX: R79.89 Other specified abnormal findings of blood chemistry (principal)
CPT/HCPCS: 76705

== ENCOUNTER → 2021-06-11 08:50 | Outpatient (CLI) | payer MEDICARE, SELFPAY ==
--- NOTE | 2021-06-11 08:55 | DI.RAD.S_ITS ---
PROCEDURE: FL BARIUM SWALLOW W SPEECH INDICATIONS: Choking on food and drink COMPARISON: None. TECHNIQUE: Examination was conducted in conjunction with speech pathology per standard protocol. In the lateral projection, filming was performed of the patient swallowing. AP projection filming may also be performed with patient swallowing. COMPARISON: FINDINGS: Function: The oral preparatory phase appears normal, with proper containment. No pathologic vallecular pooling. 1 episode of laryngotracheal aspiration with nectar consistent barium. A few episodes of flash penetration with thin and nectar thick barium. There is diminished esophageal stripping waves with tertiary contractions seen. There is mild delay of the barium tablet which progressed with water. No hiatal hernia demonstrated. Morphology: No cricopharyngeal bar is identified. No cervical esophageal webs. No Zenker's diverticulum. No strictures. IMPRESSION: Aspiration with nectar thick barium x1. Esophageal dysmotility. Consider esophagram for further evaluation. Please see separately dictated speech pathologist's report. Dictated by: Juan Quiles M.D. on 06/11/2021 at 10:31 Approved by: Juan Quiles M.D. on 06/11/2021 at 10:35
--- NOTE | 2021-06-11 16:50 | ST.SWALLOW ---
Visit Care Team Role Provider Type Davis Jordan MD Attending Provider Physician Primary Care Provider Referring Provider Specialty: Internal Medicine Address: [address] [place] [address], [address], [address] Email: [email or web address] Modified Barium Swallow Study [employer] Modified Barium Swallow Study Start: 06/11/21 17:47 Freq: Status: Active Protocol: Document 06/11/21 17:47 LEEANN (Rec: 06/11/21 17:48 LEEANN [id number]) Modified Barium Swallow Study Total Time Visit Start Time 09:45 Visit Stop Time 10:15 Total Visit Minutes [address] Davis Jordan Reason for Referral Dysphagia Setting Setting Outpatient Care Patient Information Identification Type Name,ID Card Patient History The pt is a 66-yr-old male with c/o coughing primarily with dry, crumbly foods and occasionally with liquids, noted more frequently by his than by him. This does not prevent him from consuming any particular foods or liquids. Subjective Observations The pt arrived on time and provided medical history supplemental to medical records. No significant PMHx to note. Patient Positioning Position View Lat-A/P Imaging Lateral View Textures Administered Trials Presented Thin Liquid via Spoon,Thin Liquid via Cup,[place] Liquid via Spoon,[place] Liquid via Cup,Honey Liquid via Spoon, Dysphagia Blenderized Textures ,Regular Textures Oral Phase Source: MBSIMP (TM) (C) Bolus Specific Scoring Grid Lip Closure No Impairment (WNL) Tongue Control During Bolus Hold No Impairment (WNL) Bolus Prep/Mastication No Impairment (WNL) Bolus Transport/Lingual Motion No Impairment (WNL) A/P Lingual Propulsion Delay No Oral Residue WFL Residue Clearing No Impairment (WNL) Nasal Regurgitation No Pharyngeal Phase Source: MBSIMP (TM) (C) Bolus Specific Scoring Grid Delayed Initiation of Pharyngeal Swallow No Soft Palate Elevation No Impairment (WNL) Tongue Base Strength/Range of Motion Mild Impairment Residue Along the Tongue Base Yes: Trace to mild Clearance of Residue Along Tongue Base WFL Laryngeal Elevation WFL Anterior Hyoid Movement Moderate Impairment Epiglottic Range of Motion No Impairment (WNL) Vallecular Residue Yes: Trace to mild Clearance of Vallecular Residue WFL Laryngeal Vestibular Closure Mild Impairment Pharyngeal Stripping Wave Mild Impairment Pharyngeal Contraction No Impairment (WNL) Posterior Pharyngeal Wall Residue No Upper Esophageal Sphincter Opening No Impairment (WNL) Residue in the Pyriform Sinuses Yes: Trace Clearance of Residue in the Pyriform No Impairment (WNL) Sinuses Pharyngoesophageal Backflow Observed No Additional Pharyngeal Phase Observations Flash penetration was observed with consecutive sips of thin liquid (PAS-2, above VFs) and NTL (PAS-3, contacted VFs) and single sip of NTL (PAS-2, above the VFs). Silent grace aspiration of NTL (PAS-8) was observed during consecutive sips in one of two trials. The pt reported feeling something but withheld from coughing because of the test. He was promted to cough by [employer], which did not expel the contrast from trachea. During a second trial of NTL by consecutive sips, the pt was instructed to focus on swallowing and swallow hard. No airway penetration was observed. Mild pharyngeal residue collected at base of tongue, vallecula, aryepiglottic folds, and pyriform sinuses, reduced with increased bolus bulk. Subsequent swallows cleared residue WFL. A/P View Textures Administered Trials Presented [place] Liquid via Cup, Dysphagia Blenderized Textures ,Barium Tablet A/P View Observations Pharyngeal Contraction Mild Impairment Esophageal Function Slowed Clearing,Reverse Peristalsis,Stasis Esophageal Clearance Upright Position Mild Impairment Additional Observations Delayed emptying through LES into the stomach was observed with all trials proffered in A/P view. NTL and paste cleared with subsequent swallows of liquid. A 13-mm barium tablet did not pass during viewing. Esophageal Observations Esophageal Function GI consultation is recommended to assess esophageal function. Clinical Impressions Dysphagia Type Mild-Moderate Pharyngeal Dysphagia Findings The pt presents with mild- moderate pharyngeal dysphagia secondary to reduced hyolaryngeal elevation and anterior excursion resulting in occasional incomplete airway closure allowing for penetration and aspiration of liquids. Aspiration of NTLs appeared to be silent in nature, although the pt endorsed feeling something but deliberately suppressed cough so as not to disrupt the exam. Delayed cough via [employer]'s instruction was not effective in clearing the contrast from the trachea. Additionally, mild weakness at base of tongue and pharyngeal constrictors resulted in mild pharyngeal residue, most notably at vallecula and along aryepiglottic folds. Outpatient dysphagia therapy is recommended for patient education and to increase muscular strength and airway closure to reduce risk of aspiration and worsening symptoms. The pt was educated of initial findings and recommendations, verbalized understanding and agreement. Rehabilitation Potential Excellent Patient Appropriate for Therapy Yes Recommendations Diet Liquids Order Thin Diet Order Regular Medication Recommendation As Tolerated Aspiration Precautions Recommended Precautions Upright at 90 Degrees,Small Bites/Sips,Effortful Swallow Additional Precautions Reduce distractions. Cough when airway feels compromised. Treatment Plan Therapy Recommendations Outpatient Speech Therapy Recommended Referrals GI Consult Compensatory Strategies Recommendations Sitting Upright (90 deg), Supraglottic Swallow,Small Bites and Sips Short Term Goals 1. The pt will follow safe swallow strategies to reduce risk of aspiration. 2. The pt will perform exercises to improve efficiency of swallow and safety with oral intake. Frozen Food Department Manager Goals 1. The pt will safely tolerate regular textures, including dry and crumbly foods, and thin liquids.
== END ==
PROVIDERS: PCP Student in an Organized Health Care Education/Training Program; Referring Provider Student in an Organized Health Care Education/Training Program; Visit Provider Student in an Organized Health Care Education/Training Program
DX: T17.320A Food in larynx causing asphyxiation, initial encounter (principal); K22.4 Dyskinesia of esophagus
CPT/HCPCS: 74230; 92611

== ENCOUNTER → 2021-06-28 12:09 | Outpatient (CLI) | payer MEDICARE, SELFPAY ==
[2021-06-28 14:06] LABS: Hemoglobin A1C% w Est Avg Glu 6.1 % (4.0-6.0)
[2021-06-28 14:13] LABS: Alanine Aminotransferase 33 IU/L (<50); Albumin 4.8 g/dL (3.5-5.0); Albumin Globulin Ratio 1.8 (1.0-2.8); Alkaline Phosphatase 79 U/L (38-126); Aspartate Aminotransferase 37 IU/L (17-59); BUN Creatinine Ratio 19.7 (6-22); Bilirubin Total 0.7 mg/dL (0.2-1.3); Bilirubin Unconjugated 0.7 mg/dL (0.0-1.1); Blood Urea Nitrogen 14 mg/dL (9-20); Cholesterol 150 mg/dL (140-199); Estimated Glomerular Filt Rate > 60 mL/min (>60); Globulin 2.6 g/dL (1.7-4.1); HDL Cholesterol 40 mg/dL (40-60); HEMOLYSIS < 15 (0-50); LDL Cholesterol Calculated 74 mg/dL (<100); Total Protein 7.4 g/dL (6.3-8.2); Triglycerides 181 mg/dL (35-150); Uric Acid 6.6 mg/dL (3.5-8.5)
[2021-06-28 16:35] LABS: Microalbumin Urine Random 1.3 mg/dL (0-1.6)
[2021-06-28 16:52] LABS: Creatinine Urine Random 77.7 mg/dL; Microalbumi Creatinin Ratio Ur 16.7 ug/mg CR (<30)
== END ==
PROVIDERS: PCP Student in an Organized Health Care Education/Training Program; Referring Provider Student in an Organized Health Care Education/Training Program; Visit Provider Student in an Organized Health Care Education/Training Program
DX: I10 Essential (primary) hypertension (principal); E11.69 Type 2 diabetes mellitus with other specified complication; E78.5 Hyperlipidemia, unspecified; M10.9 Gout, unspecified; R79.89 Other specified abnormal findings of blood chemistry
CPT/HCPCS: 36415; 80061; 80076; 82043; 82565; 82570; 83036; 84520; 84550

== ENCOUNTER → 2021-12-20 15:11 | Outpatient (CLI) | payer MEDICARE, SELFPAY ==
[2021-12-20 17:48] LABS: Appearance Urine UA CLEAR; Bilirubin Urine UA NEGATIVE (NEGATIVE); Color Urine UA YELLOW; Glucose Urine UA NEGATIVE (Negative); Ketones Urine UA NEGATIVE (NEGATIVE); Leukocyte Esterase Urine UA NEGATIVE (NEGATIVE); Nitrite Urine UA NEGATIVE (Negative); Occult Blood Urine UA NEGATIVE (Negative); Protein Urine UA NEGATIVE (Negative); Specific Gravity Urine UA 1.025 (1.000-1.035); Urobilinogen Urine UA 0.2 E.U./dL (0.2); pH Urine UA 5.5 (4.5-8.0)
[2021-12-20 17:49] LABS: Bacteria Urine None Seen; Culture Indicated Urine Cult Not Indicated; RBC Urine None Seen (0-5/HPF); WBC Urine None Seen (0-5/HPF)
== END ==
PROVIDERS: PCP Student in an Organized Health Care Education/Training Program; Referring Provider Student in an Organized Health Care Education/Training Program; Visit Provider Student in an Organized Health Care Education/Training Program
DX: R31.9 Hematuria, unspecified (principal)
CPT/HCPCS: 36415; 81001

== ENCOUNTER → 2022-01-24 13:52 | Outpatient (CLI) | payer MEDICARE, SELFPAY ==
[2022-01-24 15:38] LABS: BUN Creatinine Ratio 27.5 (6-22); Blood Urea Nitrogen 19 mg/dL (9-20); Calcium 9.3 mg/dL (8.4-10.2); Carbon Dioxide 30 mmol/L (22-32); Chloride 99 mmol/L (98-107); Estimated Glomerular Filt Rate > 60 mL/min (>60); Glucose 107 mg/dL (80-110); HEMOLYSIS < 15 (0-50); Potassium 3.7 mmol/L (3.4-5.1); Sodium 139 mmol/L (137-145)
== END ==
PROVIDERS: PCP Student in an Organized Health Care Education/Training Program; Referring Provider Urology; Visit Provider Urology
DX: R31.0 Gross hematuria (principal); Z87.891 Personal history of nicotine dependence; Z85.46 Personal history of malignant neoplasm of prostate; Z90.79 Acquired absence of other genital organ(s); Z77.22 Contact with and (suspected) exposure to environmental tobacco smoke (acute) (chronic)
CPT/HCPCS: 36415; 80048; 81002; 99214

== ENCOUNTER → 2022-02-12 10:20 | Outpatient (CLI) | payer MEDICARE, SELFPAY ==
--- NOTE | 2022-02-12 10:21 | DI.CT.S_ITS ---
PROCEDURE: CT ABDOMEN PELVIS WO/W CON INDICATIONS: Gross hematuria history of tobacco use TECHNIQUE: Optional 5 mm thick noncontrast images acquired from the diaphragm to the symphysis pubis. After the administration of intravenous contrast, 5 mm thick images acquired from the diaphragm to the symphysis pubis after a 10-minute delay. 2 mm thick coronal and sagittal reformats were then performed of the kidneys and ureters. For radiation dose reduction, the following was used: automated exposure control, adjustment of mA and/or kV according to patient size. COMPARISON: None. FINDINGS: Image quality: Good Lower chest: Borderline cardiomegaly. Nonspecific mild distal esophageal wall thickening. Coronary artery calcifications. Solid organs: Borderline steatosis of the liver. Gallbladder is unremarkable. There is a small jefferson ampullary duodenal diverticulum. No pathologic dilation of the biliary tree or pancreatic duct. No splenomegaly. No adrenal nodules. No hydronephrosis bilaterally. No enhancing renal mass. No intrarenal radiopaque calculus. No ureteral filling defect. Bladder is underdistended which limits evaluation. There is mild wall thickening and perivesicular stranding. No radiopaque stones identified. Postprocedural changes of the prostate bed, not well evaluated on this study. Vessels and lymph nodes: The main portal vein is patent. There is atherosclerotic calcifications. Prominent katlyn hepatis lymph nodes are present, of uncertain etiology, not enlarged by size criteria. No other lymphadenopathy by size criteria is identified. Bowel and peritoneum: No bowel obstruction. Nonspecific central mesenteric mild fat stranding, possibly sequela mesenteric panniculitis. There are colonic diverticula. No pathologic ascites. Body wall: Small fat containing umbilical hernia. Pelvis: As above Bones: Jefferson symphyseal sclerosis and erosive changes, possibly sequelae of osteitis pubis. No focally suspicious osseous lesion otherwise. Likely nonacute rib deformities. Likely degenerative relatively symmetric sclerosis of the lower sacrum also seen. IMPRESSION: No upper tract disease identified by CT IVP. No hydronephrosis. Lower tract disease can be better evaluated with cystoscopy. There is mild nonspecific bladder wall thickening and perivesicular stranding, which could also be correlated with urinalysis. Other findings as above. Dictated by: Piter Frey M.D. on 02/12/2022 at 12:06 Approved by: Piter Frey M.D. on 02/12/2022 at 12:13
== END ==
PROVIDERS: PCP Student in an Organized Health Care Education/Training Program; Referring Provider Urology; Visit Provider Urology
DX: R31.0 Gross hematuria (principal); I25.10 Atherosclerotic heart disease of native coronary artery without angina pectoris; K57.10 Diverticulosis of small intestine without perforation or abscess without bleeding; K57.90 Diverticulosis of intestine, part unspecified, without perforation or abscess without bleeding; K42.9 Umbilical hernia without obstruction or gangrene; Z87.891 Personal history of nicotine dependence
CPT/HCPCS: 74178; Q9967

== ENCOUNTER → 2022-02-28 14:30 | Outpatient (CLI) | payer MEDICARE, SELFPAY ==
[2022-02-28 15:06] LABS: Hematocrit 41.4 % (41-53); Hemoglobin 14.1 g/dL (13.5-17.5); Mean Corpuscular HGB Conc 34.1 % (30-36); Mean Corpuscular Hemoglobin 31.8 PG (26-34); Mean Corpuscular Volume 93.1 fL (80-100); Platelet Count 180 X10^3/uL (150-400); Red Blood Cell Count 4.44 X10^6/uL (4.5-5.9); Red Cell Distribution Width 13.4 % (11.6-14.8); White Blood Cell Count 5.7 X10^3/uL (4.5-11.0)
[2022-02-28 15:28] LABS: Hemoglobin A1C% w Est Avg Glu 6.4 % (4.0-6.0)
[2022-02-28 15:31] LABS: Alanine Aminotransferase 43 IU/L (<50); Alkaline Phosphatase 87 U/L (38-126); Aspartate Aminotransferase 42 IU/L (17-59); BUN Creatinine Ratio 31.2 (6-22); Bilirubin Total 0.6 mg/dL (0.2-1.3); Blood Urea Nitrogen 24 mg/dL (9-20); Calcium 9.7 mg/dL (8.4-10.2); Carbon Dioxide 29 mmol/L (22-32); Chloride 97 mmol/L (98-107); Cholesterol 211 mg/dL (140-199); Estimated Glomerular Filt Rate > 60 mL/min (>60); Glucose 88 mg/dL (80-110); HDL Cholesterol 50 mg/dL (40-60); HEMOLYSIS < 15 (0-50); LDL Cholesterol Calculated 81 mg/dL (<100); Potassium 3.7 mmol/L (3.4-5.1); Sodium 138 mmol/L (137-145); Total Protein 8.1 g/dL (6.3-8.2); Triglycerides 398 mg/dL (35-150); Uric Acid 7.7 mg/dL (3.5-8.5)
[2022-02-28 16:29] LABS: Prostate Specific Antigen < 0.064 ng/mL (0.10-4.00)
[2022-03-01 16:58] LABS: Albumin Globulin Ratio 1.6 (1.0-2.8); Globulin 3.1 g/dL (1.7-4.1)
== END ==
PROVIDERS: PCP Internal Medicine; Referring Provider Internal Medicine; Visit Provider Internal Medicine
DX: E11.69 Type 2 diabetes mellitus with other specified complication (principal); E78.5 Hyperlipidemia, unspecified; Z85.46 Personal history of malignant neoplasm of prostate; E78.2 Mixed hyperlipidemia; I10 Essential (primary) hypertension; K75.81 Nonalcoholic steatohepatitis (NASH); M10.9 Gout, unspecified
CPT/HCPCS: 36415; 80053; 80061; 83036; 84153; 84550; 85027

== ENCOUNTER 2022-03-12 11:55 | Day surgery (SDC) | payer MEDICARE, SELFPAY ==
[2022-03-07 07:56] VITALS: BMI 33.3
[2022-03-12] VITALS (8 sets, daily range): BP systolic 116–161; BP diastolic 70–100; PULSE 48–62; RESP 12–16; TEMP 36–36.3; O2SAT 95–99; BMI 33.3
--- NOTE | 2022-03-12 | PATH_ITS ---
[facility] Accession Number: [id number] No. of containers..01 Tissue . 01 Material submitted: . bladder - TUMOR LEFT POSTERIOR LATERAL BLADDER . 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 No invasive malignancy seen. No muscularis propria present. MRV 03/20/2022 1350 Local . 01 Comment: Sections are of urothelial mucosa with a papillary growth pattern. Umbrella cells with reactive, markedly vacuolized cytoplasm are present throughout the lesion. No significant mitotic activity is present. The underlying urothelium shows mild nuclear crowding and overlap, and foci with greater than 6 cells in thickness. Overall, the features are consistent with a PUNLMP. Features diagnostic of papillary urothelial carcinoma are not present in this biopsy. . As part of routine quality control assessor, Dr. Tierney has reviewed this case and agrees with the diagnosis of PUNLMP. . 01 Electronically signed: . Jonnathan Oshea MD, PhD, Pathologist NPI- [id number] . 01 Gross description: . TUMOR LEFT POSTERIOR LATERAL BLADDER: Received in formalin is 1 fragment(s) of castañeda, soft tissue measuring 0.5 x 0.3 x 0.2 cm submitted entirely in 1 cassette(s) /CPE 03/13/2022 0908 Local . 01 Pathologist provided ICD-10: D49.4 . 01 CPT . 863789 Specimen Comment: A courtesy copy of this report has been sent to [phone] Performed at: 01 [facility] [address] [place] [address] [address], [place], [place] [id number] MD Aj Vela MD Phone: [phone]
--- NOTE | 2022-03-12 12:26 | PM.PREOP ---
Pre-operative Note COVID-19 COVID-19 status: Not tested Criteria for continued procedure: Delay expected to result in less-positive ultimate med/surg outcome and Non-surgical alternatives not available or appropriate per current SOC Interval Note History & Physical reviewed/Exam performed by Physician: Yes Changes to H&P: No
[2022-03-12] MEDS: LACTATED RINGERS 1,000 ML 21 ML IV (12:42)
[2022-03-12] MEDS: CEFAZOLIN 2 GM/100 ML PREMIX 100 ML IV (13:50)
--- NOTE | 2022-03-12 14:01 | SUR.OPER ---
Lithotomy on padded OR bed, head on pillow, arms secured on padded arm boards at <90 degrees abduction. Legs secured in padded yellow fins stirrups. Pt positioned per direction and supervision of Dr Rome.
--- NOTE | 2022-03-12 14:09 | P.OP_ITS ---
Procedure & Clinicians Procedure: Transurethral resection of bladder tumor small Same procedure as scheduled: Yes Indications: This 66-year-old male who has a history of prostate cancer presented with complaint of hematuria. Through workup he was found to have a papillary tumor on the left posterolateral bladder and presents this time for resection of this tumor. Surgeon: Fred Rome Click Yes if Unassisted: Yes Anesthesia Type: General Operative Notes Findings: Urethra normal to the anastomosis and sphincter the sphincter as well coapted and the anastomosis is well formed prostate is surgically absent ureteral orifices in normal position with clear efflux. On the posterior left lateral bladder is a cm to 1-1/2 cm papillary tumor. There are no other tumors or abnormalities noted within the bladder save some trabeculation. At the end of the procedure the tumor was completely resected and a margin fulgurated. No Martin catheter was left in place Closure Type: not applicable Specimen(s): other (Papillary tumor posterolateral left bladder) Prosthetic devices, grafts, tissues, transplants, or devices: None Estimated Blood Loss (mL): 0 Blood products transfused: none Procedure in detail: Procedure in detail: After informed consent was obtained and the patient identified he was brought to the operating room where he was placed in supine position on the table and anesthesia was induced and maintained. Ensuring an adequate level of anesthesia patient was transitioned to the lithotomy position. Once within the lithotomy position he was prepped, draped come prepared for Transurethral procedure. After time-out and again ensuring an adequate level of anesthesia a 22 [place] cystoscope was passed through the urethra anastomosis and into the bladder where cystoscopy was performed surveying the entire bladder. With the tumor identified the biopsy forceps were inserted and the tumor was completely resected. This was then forward of the pathology in formalin. Bugbee electrode was inserted and the base of the tumor and a proximally a cm margin were then fulgurated. Hemostasis was achieved by these maneuvers. The bladder was then filled drained filled drained filled and drain and hemostasis was good. The bladder was drained the scope was removed and the patient was awakened having tolerated the procedure well to be discharged to home after being transferred to the postanesthesia care unit for recovery. There were no complications Complications: none Post-operative Condition: stable Disposition: PACU Plan for aftercare: Patient to be discharged to home to follow up my office in approximately 10-14 days.
== END 2022-03-12 15:06 | disposition home or self-care (01) ==
PROVIDERS: PCP Internal Medicine; Referring Provider Urology; Visit Provider Urology
PROC: 0TBB8ZZ Excision of Bladder, Via Natural or Artificial Opening Endoscopic (ICD-10-PCS; CPT 52234; principal; 2022-03-12 13:00)
DX: D49.4 Neoplasm of unspecified behavior of bladder (principal); Z85.46 Personal history of malignant neoplasm of prostate
CPT/HCPCS: 52234; J0690; J1100; J2250; J2405; J2704; J3010

== ENCOUNTER 2022-04-27 23:39 | Emergency (ER) | payer MEDICARE, SELFPAY ==
[2022-04-27 23:44] VITALS: BP 132/70; PULSE 71; O2SAT 93
[2022-04-27 23:45] VITALS: BP 132/70; PULSE 83; RESP 18; TEMP 36.6; O2SAT 92; BMI 32.2
--- NOTE | 2022-04-27 23:50 | DI.RAD.S_ITS ---
PROCEDURE: XR CHEST 2V INDICATIONS: cough with lower o2 TECHNIQUE: 2 views of the chest were acquired. COMPARISON: [facility], THERON, XR CHEST 1V, 03/25/2018, 13:11. [facility], CR, CHEST 1 VIEW, 02/04/2016, 0:28. FINDINGS: Surgical changes and devices: None. Lungs and pleura: Lungs are abnormal with a chronic interstitial prominence, and this is somewhat accentuated by reduced inspiratory volume. There is also what appears to be mild or early pneumonia at the medial right lower lobe. Vessels crossing through this area are less well visualized than on prior comparison chest plain film imaging in the same area.. No pleural effusions or pneumothorax. Mediastinum: Mediastinal contours are normal. Heart size is normal. Bones and chest wall: No suspicious bony abnormalities. Soft tissues appear unremarkable. IMPRESSION: Suspect mild or early pneumonia superimposed on chronic interstitial prominence with pneumonia appearance at the medial segment right middle lobe. Dictated by: Luis Angel Ashley M.D. on 04/28/2022 at 0:11 Approved by: Luis Angel Ashley M.D. on 04/28/2022 at 0:12
[2022-04-28] VITALS: BP 101/57; PULSE 83; O2SAT 95
--- NOTE | 2022-04-28 00:08 | ED.URI ---
HPI - URI/Sore Throat General Chief Complaint: Upper Respiratory Symptoms Stated Complaint: wheezing/rattling in chest Time Seen by Provider: 04/27/22 23:45 Source: patient and family Mode of arrival: Ambulatory History of Present Illness HPI Narrative: 67-year-old male former smoker with history of bladder cancer, type 2 diabetes and esophageal dysmotility presents with his in the chief complaint of a few days of increased work of breathing, cough and subjective fever. He denies any headache or blurred vision. He is had no nasal congestion or sore throat. He denies nausea, vomiting or diarrhea. He has a home pulse oximeter and has a few times noted his levels to be in the upper 80s. He did use his 's nebulizer in seemed to help. He has had no nausea, vomiting or diarrhea. Related Data Home Medications Medication Instructions Recorded Confirmed aspirin 81 mg tablet,delayed 81 mg PO DAILY 03/25/18 03/22/22 release turmeric 1 tab PO DAILY 03/25/18 03/22/22 cholecalciferol (vitamin D3) 50 50 mcg PO DAILY 12/24/21 03/22/22 mcg (2,000 unit) capsule magnesium 200 mg tablet 400 mg PO DAILY 12/24/21 03/22/22 omega 6-qwi-ilo-fish oil 1,200 mg 1,200 cap PO DAILY 12/24/21 03/22/22 (144 mg-216 mg) capsule (Fish Oil) liver refresh PO 01/24/22 03/22/22 zinc gluconate 50 mg tablet 50 mg PO DAILY 01/24/22 03/22/22 Previous Rx's Medication Instructions Recorded allopurinol 300 mg tablet 300 mg PO DAILY #90 tabs 02/28/22 lisinopril 20 See Rx Instructions .Route 02/28/22 mg-hydrochlorothiazide 25 mg tablet .COMPLEX #90 tabs metformin 500 mg tablet 500 mg PO BIDWMEAL #180 tabs 02/28/22 simvastatin 40 mg tablet See Rx Instructions .Route 02/28/22 .COMPLEX #90 tabs amoxicillin 500 mg capsule 1,000 mg PO Q8H 5 days #30 caps 04/28/22 benzonatate 200 mg capsule 200 mg PO BID PRN cough #20 caps 04/28/22 Allergies Allergy/AdvReac Type Severity Reaction Status Date / Time No Known Drug Allergies Allergy Verified 03/22/22 14:37 Review of Systems Review of Systems Narrative: GENERAL: See HPI HEENT: See HPI RESPIRATORY: See HPI CARDIOVASCULAR: Denies chest pain, palpitations, orthopnea, edema, GASTROINTESTINAL: Denies nausea, vomiting, abdominal pain, diarrhea, constipation, melena. : Denies dysuria, frequency, incontinence, hematuria, urinary retention. MUSCULOSKELETAL: denies weakness, joint pain, or bony pain SKIN: Denies rash, skin lesions, or other NEUROLOGIC: Denies weakness, headache, numbness, change in speech, confusion, seizures, incoordination. PSYCHIATRIC: No concerning psychosocial issues. 12 point review of systems is negative except for those stated above Patient History Medical History DM type 2 with diabetic dyslipidemia Essential hypertension Gross hematuria Hearing loss History of prostate cancer Lower urinary tract symptoms Mixed hyperlipidemia 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 Secondhand smoke exposure Sleep apnea (~2018) Surgical History Anesthesia History of prostatectomy (~05/2012) Hx of circumcision Hx of prostate biopsy Hx of vasectomy Family History Father History of heart disease Hypertension Smoker Mother History of heart disease Hypertension Smoker Sister Hypertension Social History 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 Well-developed patient, in mild distress. HEAD: Atraumatic. Normocephalic. EYES: Pupils equal round and reactive. Extraocular motions intact. No scleral icterus. No injection or drainage. ENT: Nose without bleeding, purulent drainage. Throat without erythema, tonsillar hypertrophy or exudate. Airway patent. NECK: Trachea midline. Non tender CARDIOVASCULAR: Regular rate and rhythm without murmurs, gallops, or rubs. RESPIRATORY: Decreased breath sounds throughout with slightly prolonged expiratory phase, crackles in right mid lung GASTROINTESTINAL: Abdomen soft, non-tender, nondistended. EXTREMITIES: No edema or joint tenderness. BACK: Nontender without deformity or crepitance. No flank tenderness. NEURO: AOx3. SKIN: No rash or erythema of visible areas Initial Vital Signs Initial Vital Signs: Vital Signs Pulse Rate 71 04/27/22 23:44 Blood Pressure 132/70 04/27/22 23:44 Pulse Oximetry 93 04/27/22 23:44 Course Orders Ordered: Discontinued Medications Albuterol (Albuterol Hfa Prepack) 1 box MISC SEEINSTR ONE Stop: 04/28/22 00:57 Last Admin: 04/28/22 01:09 Dose: 1 box Documented By: ROMELIA Amoxicillin (Amoxicillin 250 Mg Capsule) 1,000 mg PO NOW ONE Stop: 04/28/22 00:57 Last Admin: 04/28/22 01:09 Dose: 1,000 mg Documented By: ROMELIA Dexamethasone (Dexamethasone 10 Mg/Ml Vial) 8 mg PO NOW ONE Stop: 04/28/22 00:57 Last Admin: 04/28/22 01:09 Dose: 8 mg Documented By: ROMELIA Vital Signs Vital signs: Vital Signs - 8 hr 04/27/22 23:45 04/28/22 00:11 Temperature 98 F Pulse Rate 83 Respiratory Rate 18 Blood Pressure 132/70 Pulse Oximetry 92 98 Oxygen Delivery Method Room Air Room Air MDM - URI/Sore Throat Lab Data Labs: Lab Results 04/28/22 Range/Units 00:10 SARS-CoV-2 (PCR) Negative (Negative) Influenza A (RT-PCR) Flu a negative (NEGATIVE) Influenza B (RT-PCR) Flu b negative (NEGATIVE) RSV (PCR) Negative (Negative) MDM Narrative Medical decision making narrative: [67] year old patient presents with cough and shortness of breath Multiple etiologies for patient's symptoms considered including, but not limited to: [Flu, COVID, pneumonia, versus other] Prior Charts reviewed in our EMR Primary Historian: patient Labs reviewed and interpreted by myself: Imaging reviewed: Right middle lobe pneumonia Patient's symptoms improved over duration of stay with above-stated therapies. Patient able to ambulate through the department, breathing is nonlabored, pulse ox remains in the low to mid 90s. No indication for admission, antibiotics initiated Findings and discharge diagnosis discussed with patient/family followed by verbalization of understanding Return precautions discussed with patient/family whom verbalize understanding of diagnosis and plan Discharge Plan Departure Patient Disposition: Home Clinical Impression: Pneumonia of right middle lobe due to infectious organism Instructions: DI for Pneumonia -- Adult Activity Restrictions/Additional Instructions: *You have been diagnosed with [right middle lobe pneumonia. As we discussed your history and physical exam as well as response to therapies are reassuring. Your chest x-ray shows a right middle lobe pneumonia and the swabs for respiratory viruses are negative for flu, COVID and RSV] *What to do: *Please continue to take your regular medications as directed. [x ] New medication prescriptions sent to your pharmacy: [ [facility]] [ ] New medication written as a paper prescription [ ] No new medications given *Please follow up with your primary care provider in 2-3 days, call for an appointment. Let them know you were seen in the Emergency Department and that we ask that you be seen in follow up. We will electronically transmit a record of today's note if your PCP is in our system *Return to Emergency Department if you should have any new, worsening or concerning symptoms, such as [fever greater than 101 F, shaking chills, worsening pain, persistent vomiting or other bothersome symptoms] Prescriptions: New amoxicillin 500 mg capsule 1,000 mg PO Q8H 5 Days Qty: 30 0RF benzonatate 200 mg capsule 200 mg PO BID PRN (Reason: cough) Qty: 20 0RF No Action allopurinol 300 mg tablet 300 mg PO DAILY Qty: 90 3RF lisinopril-hydrochlorothiazide 20-25 mg tablet See Rx Instructions .ROUTE .COMPLEX Qty: 90 3RF Dose Instruction: TAKE 1 TABLET BY MOUTH DAILY Rx Instructions: TAKE 1 TABLET BY MOUTH DAILY metformin 500 mg tablet 500 mg PO BIDWMEAL Qty: 180 3RF simvastatin 40 mg tablet See Rx Instructions .ROUTE .COMPLEX Qty: 90 3RF Dose Instruction: TAKE 1 TABLET BY MOUTH AT BEDTIME Rx Instructions: TAKE 1 TABLET BY MOUTH AT BEDTIME magnesium 200 mg tablet 400 mg PO DAILY cholecalciferol (vitamin D3) 50 mcg (2,000 unit) capsule 50 mcg PO DAILY omega 6-oku-ugi-fish oil [Fish Oil] 1,200 (144-216) mg capsule 1,200 cap PO DAILY aspirin 81 mg Tablet,Delayed Release (Dr/Ec) 81 mg PO DAILY turmeric 1 tab PO DAILY zinc gluconate 50 mg tablet 50 mg PO DAILY liver refresh PO Referrals: Wilfrid Kowalski MD [Primary Care Provider] - Stand Alone Forms: Patient Portal/API
[2022-04-28 00:11] VITALS: O2SAT 98
[2022-04-28 00:30] VITALS: BP 105/59; PULSE 83; O2SAT 93
[2022-04-28 00:57] LABS: Influenza A - CEPHEID Flu A NEGATIVE (NEGATIVE); Influenza B - CEPHEID Flu B NEGATIVE (NEGATIVE); Respiratory Syncytial Virus Negative (Negative)
[2022-04-28 01:00] VITALS: BP 104/59; PULSE 84; O2SAT 91
[2022-04-28] MEDS: DEXAMETHASONE 10 MG/ML VIAL 8 MG PO (01:09)
[2022-04-28] MEDS: AMOXICILLIN 250 MG CAPSULE 1000 MG PO (01:09)
[2022-04-28] MEDS: ALBUTEROL HFA PREPACK 1 BOX MISC (01:09)
[2022-04-28 01:10] LABS: COVID-19 CEPHEID 4-PLEX PCR Negative (Negative)
[2022-04-28 01:30] VITALS: BP 110/61; PULSE 81; O2SAT 92
[2022-04-28 01:34] VITALS: BP 110/61; PULSE 83; RESP 18; TEMP 36.6; O2SAT 94
== END 2022-04-28 01:36 | disposition home or self-care (01) ==
PROVIDERS: Emergency Provider Emergency Medicine; PCP Internal Medicine
DX: J18.8 Other pneumonia, unspecified organism (principal)
CPT/HCPCS: 0241U; 71046; 94640; 99283; J1100

== ENCOUNTER → 2022-06-05 11:03 | Outpatient (CLI) | payer MEDICARE, SELFPAY ==
[2022-06-05 12:54] LABS: BUN Creatinine Ratio 26.5 (6-22); Blood Urea Nitrogen 18 mg/dL (9-20); Calcium 9.9 mg/dL (8.4-10.2); Carbon Dioxide 27 mmol/L (22-32); Chloride 100 mmol/L (98-107); Cholesterol 171 mg/dL (140-199); Estimated Glomerular Filt Rate > 60 mL/min (>60); Glucose 108 mg/dL (80-110); HDL Cholesterol 60 mg/dL (40-60); HEMOLYSIS < 15 (0-50); LDL Cholesterol Calculated 73 mg/dL (<100); Sodium 138 mmol/L (137-145); Triglycerides 192 mg/dL (35-150)
[2022-06-05 12:57] LABS: Creatinine Urine Random 133.3 mg/dL
[2022-06-05 12:59] LABS: Microalbumi Creatinin Ratio Ur 25.5 ug/mg CR (<30); Microalbumin Urine Random 3.4 mg/dL (0-1.6)
[2022-06-05 13:23] LABS: TSH w/ Reflex to FT4 2.44 uIU/mL (0.47-4.68)
[2022-06-06 09:48] LABS: Labcorp Hemoglobin (Hb) A1c 6.2 % (4.8-5.6)
== END ==
PROVIDERS: PCP Internal Medicine; Referring Provider Internal Medicine; Visit Provider Internal Medicine
DX: E11.69 Type 2 diabetes mellitus with other specified complication (principal); E78.2 Mixed hyperlipidemia; E78.5 Hyperlipidemia, unspecified; I10 Essential (primary) hypertension
CPT/HCPCS: 36415; 80048; 80061; 82043; 82570; 83036; 84443

== ENCOUNTER 2022-11-15 12:47 | Day surgery (SDC) | payer MEDICARE, SELFPAY ==
[2022-11-15 13:27] VITALS: BP 140/88; PULSE 60; RESP 18; TEMP 36.2; O2SAT 95; BMI 31.9
[2022-11-15] MEDS: LACTATED RINGERS 1,000 ML 150 ML IV (13:32)
--- NOTE | 2022-11-15 14:10 | PM.HP.1 ---
History of Present Illness History of Present Illness Date Patient Seen: 11/15/22 Time Patient Seen: 14:10 Chief complaint: Screening Colonoscopy Narrative: History of colon polyps, no current symptoms. [facility] Medical History (Updated 06/05/22 @ 10:47 by Wilfrid Kowalski MD) Chondromalacia, right knee History of colonic polyps 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 Lower urinary tract symptoms Gross hematuria Mixed hyperlipidemia DM type 2 with diabetic dyslipidemia Secondhand smoke exposure History of prostate cancer Hearing loss Sleep apnea (~2018) Essential hypertension Surgical History Hx of circumcision Hx of vasectomy Hx of prostate biopsy Anesthesia History of prostatectomy (~05/2012) Family History Father History of heart disease Hypertension Smoker Mother History of heart disease Hypertension Smoker Sister Hypertension Social History 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: , 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, 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, 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 number of children: 1 household members: spouse Smoking Status: Former smoker alcohol intake: current caffeine: Yes Type(s) of exercise: other frequency: 3-4 times per week duration: 60-90 minutes/day Meds Home Medications and Allergies Home Medications Medication Instructions Recorded Confirmed Type turmeric 1 tab PO DAILY 03/25/18 10/02/22 History cholecalciferol (vitamin D3) 50 50 mcg PO DAILY 12/24/21 11/15/22 History mcg (2,000 unit) capsule magnesium 200 mg tablet 400 mg PO DAILY 12/24/21 11/15/22 History omega 8-qkd-mxd-fish oil 1,200 mg 1,200 cap PO DAILY 12/24/21 11/15/22 History (144 mg-216 mg) capsule (Fish Oil) liver refresh PO BID 01/24/22 10/02/22 History zinc gluconate 50 mg tablet 50 mg PO DAILY 01/24/22 11/15/22 History lisinopril 20 See Rx Instructions .Route 02/28/22 11/15/22 Rx mg-hydrochlorothiazide 25 mg tablet .COMPLEX #90 tabs metformin 500 mg tablet 500 mg PO BIDWMEAL #180 tabs 01/19/23 10/06/23 Rx simvastatin 40 mg tablet See Rx Instructions .Route 02/28/22 11/15/22 Rx .COMPLEX #90 tabs allopurinol 300 mg tablet 300 mg PO DAILY #90 tabs 06/05/22 11/15/22 Rx Allergies Allergy/AdvReac Type Severity Reaction Status Date / Time No Known Drug Allergies Allergy Verified 07/03/22 08:44 Review of Systems Review of Systems ROS: Yes All systems reviewed with the patient and are negative except as otherwise documented Exam Vital Signs (past 8 hours): - 11/15/22 13:27 Temperature 97.2 F L Pulse Rate 60 Respiratory Rate 18 Blood Pressure 140/88 Pulse Oximetry 95 Oxygen Delivery Method Room Air Oxygen Delivery Method Room Air Const General: cooperative and comfortable HENMT Head: normocephalic and atraumatic Eyes Sclera: sclerae normal Neck Neck: trachea midline Resp Effort & Inspection: normal respiratory effort and able to speak in complete sentences Cardio Rate: regular rate Rhythm: regular rhythm GI Palpation: soft Skin General: elasticity normal Neuro General: patient alert, patient awake and patient oriented x3 Cognition: normal cognition Psych Appearance: grossly normal Judgment: judgment good Assessment & Plan Assessment & Plan narrative: history of colon polyps colonoscopy with anesthesia Time Spent With Patient Time with patient: less than 30 minutes
--- NOTE | 2022-11-15 14:26 | PM.OP.COLON ---
Operative Date/Time/Diagnoses Date of procedure: 11/15/22 Time of procedure: 14:27 Pre-op diagnosis: History of colon polyps Post-op diagnosis: same Procedure & Clinicians Study performed: Colonoscopy with anesthesia Same procedure as scheduled: Yes Indications: History of colon polyps Surgeon: Elma Parikh Procedure Notes Procedure in detail: Preop diagnosis: History of colon polyps Postop diagnosis: Same Operative procedure: Colonoscopy with anesthesia Surgeon: Mikki Parikh MD Findings: No polyps identified. Scant diverticuli in the descending colon Procedure: Patient placed in a lateral position. Rectal exam performed showing normal tone no masses. Colonoscope was inserted into the rectum and advanced to the ileocecal valve with minimal difficulty. Insufflation extraction scope including retroflex in the rectum had the above findings. Impression: No polyps identified. Scant small and moderate diverticuli in the descending colon Plan: Repeat colonoscopy in 5 years due to self history of colon polyps Findings: divertiulosis Specimen(s): none sent Complications: none Post-procedure Recommendations: Colonoscopy in 5 years Follow up: as needed Disposition: PACU
[2022-11-15 14:29] VITALS: BP 96/63; PULSE 66; RESP 14; TEMP 36.3; O2SAT 95
[2022-11-15 14:34] VITALS: BP 91/61; PULSE 57; RESP 16; O2SAT 94
[2022-11-15 14:39] VITALS: BP 118/77; PULSE 69; RESP 16; O2SAT 96
[2022-11-15 14:44] VITALS: BP 107/81; PULSE 59; RESP 16; TEMP 36.2; O2SAT 95
== END 2022-11-15 14:59 | disposition home or self-care (01) ==
PROVIDERS: Surgery; PCP Internal Medicine; Referring Provider Surgery; Visit Provider Surgery
PROC: 0DJD8ZZ Inspection of Lower Intestinal Tract, Via Natural or Artificial Opening Endoscopic (ICD-10-PCS; CPT 45378; principal; 2022-11-15 14:00)
DX: Z12.11 Encounter for screening for malignant neoplasm of colon (principal); Z86.010 Personal history of colon polyps; K57.30 Diverticulosis of large intestine without perforation or abscess without bleeding
CPT/HCPCS: G0105

== ENCOUNTER → 2022-12-10 08:14 | Outpatient (CLI) | payer MEDICARE, SELFPAY ==
[2022-12-10 10:26] LABS: Hemoglobin A1C% w Est Avg Glu 6.6 % (4.0-6.0)
[2022-12-10 11:17] LABS: Prostate Specific Antigen < 0.064 ng/mL (0.10-4.00)
== END ==
PROVIDERS: PCP Internal Medicine; Referring Provider Internal Medicine; Visit Provider Internal Medicine
DX: E11.69 Type 2 diabetes mellitus with other specified complication (principal); Z85.46 Personal history of malignant neoplasm of prostate; E78.5 Hyperlipidemia, unspecified
CPT/HCPCS: 36415; 83036; 84153

== ENCOUNTER 2023-05-14 14:33 | Observation (INO) | payer MEDICARE, SELFPAY ==
[2023-05-14] VITALS (14 sets, daily range): BP systolic 123–155; BP diastolic 71–86; PULSE 69–83; RESP 15–29; TEMP 36.3–36.7; O2SAT 94–99; BMI 32.3
--- NOTE | 2023-05-14 14:42 | DI.RAD.S_ITS ---
PROCEDURE: XR CHEST 1V INDICATIONS: chest pain TECHNIQUE: One view of the chest was acquired. COMPARISON: [facility], CR, XR CHEST 2V, 04/27/2022, 23:58. [facility], CR, XR CHEST 1V, 03/25/2018, 13:11. FINDINGS: Surgical changes and devices: None. Lungs and pleura: Lungs are clear. No pleural effusions or pneumothorax. Mediastinum: Mediastinal contours appear normal. Heart size is normal. Bones and chest wall: No suspicious bony lesions. Overlying soft tissues appear unremarkable. IMPRESSION: No acute cardiopulmonary abnormality is seen. Dictated by: Sanket Butcher M.D. on 05/14/2023 at 15:38 Approved by: Sanket Butcher M.D. on 05/14/2023 at 15:38
[2023-05-14 15:09] LABS: Add Manual Diff / Slide Review NO; Basophils Absolute Auto 0 /uL (0-100); Basophils Percent Auto 0.6 % (0-2); Eosinophils Absolute Auto 100 /uL (0-450); Eosinophils Percent Auto 1.1 % (2-4); Hematocrit 40.4 % (41-53); Hemoglobin 14.1 g/dL (13.5-17.5); Lymphocytes Absolute Auto 1400 /uL (1100-4500); Lymphocytes Percent Auto 22.2 % (25-40); Mean Corpuscular Hemoglobin 33.6 PG (26-34); Mean Corpuscular Volume 96.2 fL (80-100); Monocytes Absolute Auto 400 /uL (0-900); Monocytes Percent Auto 5.8 % (3-14); Neutrophils Absolute Auto 4300 /uL (1500-7000); Neutrophils Percent Auto 70.3 % (50-75); Platelet Count 177 X10^3/uL (150-400); Red Cell Distribution Width 13.5 % (11.6-14.8); White Blood Cell Count 6.2 X10^3/uL (4.5-11.0)
[2023-05-14 15:11] LABS: Prothrombin Time 10.9 SECONDS (9.4-12.5)
[2023-05-14 15:14] LABS: PTT Partial Thromboplastin Tim 37 SECONDS (25.1-36.5)
[2023-05-14 15:16] LABS: Alanine Aminotransferase 65 IU/L (<50); Albumin 4.7 g/dL (3.5-5.0); Albumin Globulin Ratio 1.7 (1.0-2.8); Alkaline Phosphatase 78 U/L (38-126); Aspartate Aminotransferase 90 IU/L (17-59); BUN Creatinine Ratio 25.3 (6-22); Bilirubin Total 0.7 mg/dL (0.2-1.3); Blood Urea Nitrogen 25 mg/dL (9-20); Carbon Dioxide 28 mmol/L (22-32); Chloride 101 mmol/L (98-107); Creatine Kinase 99 U/L (55-170); Estimated Glomerular Filt Rate > 60 mL/min (>60); Globulin 2.8 g/dL (1.7-4.1); Glucose 120 mg/dL (80-110); HEMOLYSIS < 15 (0-50); Lipase 88 U/L (23-300); Magnesium 1.8 mg/dL (1.6-2.3); Sodium 136 mmol/L (137-145); Total Protein 7.5 g/dL (6.3-8.2)
[2023-05-14 15:28] LABS: Troponin I < 0.012 ng/mL (0.01-0.034)
--- NOTE | 2023-05-14 16:17 | ED_ITS ---
HPI - Chest Pain <Fred Mederos MD - Last Filed: 05/19/23 12:49> General Chief Complaint: Chest Pain Stated Complaint: chest pain, numbness L arm Time Seen by Provider: 05/14/23 15:51 Source: patient Mode of arrival: Ambulatory Limitations: no limitations History of Present Illness HPI narrative: Patient here with . Had onset of chest pain at 2:00 p.m. today. It has now resolved. Patient has history of hypertension hyperlipidemia diabetes. Strong family history of coronary artery disease, both parents had MIs in their 50s. Last stress test was more than 5 years ago. Patient of recently in the past couple weeks has been exerting and working hard, placing bark down in his yd. In addition he helped his sister move item in a storage unit today. Afterwards he developed chest pain left side pressure radiating to the arm. No nausea sweating or syncope. Related Data Home Medications Medication Instructions Recorded Confirmed turmeric 1 tab PO DAILY 03/25/18 05/14/23 cholecalciferol (vitamin D3) 50 50 mcg PO DAILY 12/24/21 05/14/23 mcg (2,000 unit) capsule magnesium 200 mg tablet 400 mg PO DAILY 12/24/21 05/14/23 omega 3-wdf-syb-fish oil 1,200 mg 1,200 cap PO DAILY 12/24/21 05/14/23 (144 mg-216 mg) capsule (Fish Oil) liver refresh 1 tab PO BID 01/24/22 05/14/23 zinc gluconate 50 mg tablet 50 mg PO DAILY 01/24/22 05/14/23 Previous Rx's Medication Instructions Recorded lisinopril 20 1 tab PO DAILY #90 tabs 01/06/23 mg-hydrochlorothiazide 25 mg tablet allopurinol 300 mg tablet 300 mg PO DAILY #90 tabs 03/25/23 metformin 500 mg tablet 500 mg PO BIDWMEAL #180 tabs 03/25/23 simvastatin 40 mg tablet 40 mg PO BEDTIME #90 tabs 03/25/23 Allergies Allergy/AdvReac Type Severity Reaction Status Date / Time No Known Drug Allergies Allergy Verified 05/14/23 14:38 Review of Systems <Fred Mederos MD - Last Filed: 05/19/23 12:49> Review of Systems Narrative: GENERAL: negative chills, fatigue, malaise, fever, sweats. HEENT: negative sinus pain, ear pain, sore throat RESPIRATORY: negative dyspnea, cough CARDIOVASCULAR: Positive chest pain, negative palpitations GASTROINTESTINAL: negative nausea, vomiting, abdominal pain : negative dysuria, frequency, hematuria MUSCULOSKELETAL: negative muscle or bony pain SKIN: negative rash, skin lesions NEUROLOGIC: negative weakness, numbness ROS Unobtainable: All systems reviewed & are unremarkable except as noted in HPI and below Patient History <Fred Mederos MD - Last Filed: 05/19/23 12:49> Medical History History of actinic keratoses Chondromalacia, right knee History of colonic polyps 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 Gross hematuria Mixed hyperlipidemia DM type 2 with diabetic dyslipidemia Secondhand smoke exposure History of prostate cancer Hearing loss Sleep apnea (~2018) Essential hypertension Surgical History Hx of circumcision Hx of vasectomy Hx of prostate biopsy Anesthesia History of prostatectomy (~05/2012) Family History Father History of heart disease Hypertension Smoker Mother History of heart disease Hypertension Smoker Sister Hypertension Social History 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: , 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 EYES: Pupils equal round ENT: Mucous membranes moist. NECK: Trachea midline. CARDIOVASCULAR: Regular rate and rhythm RESPIRATORY: Clear to auscultation. Breath sounds equal bilaterally. No wheezes, rales, or rhonchi. GASTROINTESTINAL: Abdomen soft, non-tender EXTREMITIES: No gross deformities. BACK: No flank tenderness. NEURO: AOx4. SKIN: Warm and dry PSYCH: Not anxious, is cooperative Initial Vital Signs Initial Vital Signs: Vital Signs Temperature 98.0 F 05/14/23 14:38 Pulse Rate 83 05/14/23 14:38 Respiratory Rate 18 05/14/23 14:38 Blood Pressure 141/83 H 05/14/23 14:38 Pulse Oximetry 99 05/14/23 14:38 Oxygen Delivery Method Room Air 05/14/23 14:38 <Sharon Cee MD - Last Filed: 05/14/23 19:44> Initial Vital Signs Initial Vital Signs: Vital Signs Temperature 98.0 F 05/14/23 14:38 Pulse Rate 83 05/14/23 14:38 Respiratory Rate 18 05/14/23 14:38 Blood Pressure 141/83 H 05/14/23 14:38 Pulse Oximetry 99 05/14/23 14:38 Oxygen Delivery Method Room Air 05/14/23 14:38 Course <Fred Mederos MD - Last Filed: 05/19/23 12:49> Orders Ordered: Discontinued Medications Acetaminophen (Acetaminophen 325 Mg Tablet) 650 mg PO Q6H PRN PRN Reason: Fever/Mild Pain (1-3) Allopurinol (Allopurinol 100 Mg Tablet) 300 mg PO DAILY [facility] Last Admin: 05/15/23 09:01 Dose: 300 mg Documented By: AUGUSTO Aspirin (Aspirin 81 Mg Chew Tab) 324 mg PO NOW ONE Stop: 05/14/23 14:43 Last Admin: 05/14/23 16:38 Dose: 324 mg Documented By: ISAIAH Atorvastatin Calcium (Atorvastatin 20 Mg Tablet) 20 mg PO BEDTIME [facility] Last Admin: 05/14/23 21:28 Dose: 20 mg Documented By: SR Calcium Carbonate (Calcium Carbonate 500 Mg Tab) 1,000 mg PO Q4HR PRN PRN Reason: Dyspepsia Hydralazine HCl (Hydralazine 20 Mg/Ml Vial) 10 mg IV Q6HR PRN PRN Reason: Hypertension Hydrochlorothiazide (Hydrochlorothiazide 25 Mg Tablet) 25 mg PO DAILY [facility] Last Admin: 05/15/23 09:01 Dose: 25 mg Documented By: BR Lisinopril (Lisinopril 20 Mg Tablet) 20 mg PO DAILY [facility] Last Admin: 05/15/23 09:01 Dose: 20 mg Documented By: BR Lorazepam (Lorazepam 0.5 Mg Tablet) 0.5 mg PO Q6HR PRN PRN Reason: Anxiety Magnesium Hydroxide (Magnesium Hydroxide 30 Ml Udc) 30 ml PO DAILY PRN PRN Reason: Constipation Melatonin (Melatonin 3 Mg Tablet) 6 mg PO BEDTIME [facility] Last Admin: 05/14/23 22:29 Dose: 6 mg Documented By: SR Morphine Sulfate (Morphine 4 Mg/Ml Inj) 3 mg IV Q2HR [facility] Last Admin: 05/14/23 21:22 Dose: Not Given Documented By: SR Morphine Sulfate (Morphine 4 Mg/Ml Inj) 3 mg IV Q2HR PRN PRN Reason: Pain, Severe (7-10) Naloxone HCl (Naloxone 0.4 Mg/Ml Vial) 0.2 mg IV Q2MIN PRN PRN Reason: Opiate Reversal Nitroglycerin (Nitroglycerin 0.4 Mg Sl Tab) 0.4 mg SL [id number] PRN PRN Reason: Chest Pain Nitroglycerin (Nitroglycerin 0.4 Mg Sl Tab) 0.4 mg SL [id number] PRN PRN Reason: Chest Pain Ondansetron HCl (Ondansetron 4 Mg/2 Ml Inj) 4 mg IV Q8HR PRN PRN Reason: Nausea And Vomiting Ondansetron HCl (Ondansetron 4 Mg Odt) 4 mg PO Q8HR PRN PRN Reason: Nausea And Vomiting Pantoprazole Sodium (Pantoprazole Dr 20 Mg Tablet) 20 mg PO 0600 [facility] Last Admin: 05/15/23 06:14 Dose: 20 mg Documented By: Sennosides (Sennosides 8.6 Mg Tablet) 17.2 mg PO BEDTIME [facility] Last Admin: 05/14/23 21:25 Dose: Not Given Documented By: Vital Signs Vital signs: Vital Signs - 8 hr 05/14/23 14:38 05/14/23 15:02 05/14/23 15:03 Temperature 98.0 F Pulse Rate 83 73 76 Respiratory Rate 18 15 18 Blood Pressure 141/83 H Pulse Oximetry 99 96 96 Oxygen Delivery Method Room Air 05/14/23 15:03 05/14/23 15:30 05/14/23 15:30 Temperature Pulse Rate 79 Respiratory Rate 19 Blood Pressure 155/79 H 132/82 Pulse Oximetry 95 Oxygen Delivery Method 05/14/23 16:00 05/14/23 16:00 05/14/23 16:30 Temperature Pulse Rate 77 Respiratory Rate 19 Blood Pressure 145/79 H 144/82 H Pulse Oximetry 95 Oxygen Delivery Method 05/14/23 16:30 05/14/23 17:00 05/14/23 17:00 Temperature Pulse Rate 75 71 Respiratory Rate 21 23 Blood Pressure 123/74 Pulse Oximetry 97 Oxygen Delivery Method 05/14/23 17:30 05/14/23 17:30 05/14/23 18:00 Temperature Pulse Rate 74 77 Respiratory Rate 23 23 Blood Pressure 128/72 Pulse Oximetry 96 95 Oxygen Delivery Method 05/14/23 18:00 05/14/23 18:30 05/14/23 18:30 Temperature Pulse Rate 70 Respiratory Rate 18 Blood Pressure 125/75 129/77 Pulse Oximetry 98 Oxygen Delivery Method <Sharon Cee MD - Last Filed: 05/14/23 19:44> Orders Ordered: Discontinued Medications Acetaminophen (Acetaminophen 325 Mg Tablet) 650 mg PO Q6H PRN PRN Reason: Fever/Mild Pain (1-3) Allopurinol (Allopurinol 100 Mg Tablet) 300 mg PO DAILY [facility] Last Admin: 05/15/23 09:01 Dose: 300 mg Documented By: AUGUSTO Aspirin (Aspirin 81 Mg Chew Tab) 324 mg PO NOW ONE Stop: 05/14/23 14:43 Last Admin: 05/14/23 16:38 Dose: 324 mg Documented By: ISAIAH Atorvastatin Calcium (Atorvastatin 20 Mg Tablet) 20 mg PO BEDTIME [facility] Last Admin: 05/14/23 21:28 Dose: 20 mg Documented By: SR Calcium Carbonate (Calcium Carbonate 500 Mg Tab) 1,000 mg PO Q4HR PRN PRN Reason: Dyspepsia Hydralazine HCl (Hydralazine 20 Mg/Ml Vial) 10 mg IV Q6HR PRN PRN Reason: Hypertension Hydrochlorothiazide (Hydrochlorothiazide 25 Mg Tablet) 25 mg PO DAILY [facility] Last Admin: 05/15/23 09:01 Dose: 25 mg Documented By: AUGUSTO Lisinopril (Lisinopril 20 Mg Tablet) 20 mg PO DAILY [facility] Last Admin: 05/15/23 09:01 Dose: 20 mg Documented By: AUGUSTO Lorazepam (Lorazepam 0.5 Mg Tablet) 0.5 mg PO Q6HR PRN PRN Reason: Anxiety Magnesium Hydroxide (Magnesium Hydroxide 30 Ml Udc) 30 ml PO DAILY PRN PRN Reason: Constipation Melatonin (Melatonin 3 Mg Tablet) 6 mg PO BEDTIME [facility] Last Admin: 05/14/23 22:29 Dose: 6 mg Documented By: SR Morphine Sulfate (Morphine 4 Mg/Ml Inj) 3 mg IV Q2HR [facility] Last Admin: 05/14/23 21:22 Dose: Not Given Documented By: SR Morphine Sulfate (Morphine 4 Mg/Ml Inj) 3 mg IV Q2HR PRN PRN Reason: Pain, Severe (7-10) Naloxone HCl (Naloxone 0.4 Mg/Ml Vial) 0.2 mg IV Q2MIN PRN PRN Reason: Opiate Reversal Nitroglycerin (Nitroglycerin 0.4 Mg Sl Tab) 0.4 mg SL [id number] PRN PRN Reason: Chest Pain Nitroglycerin (Nitroglycerin 0.4 Mg Sl Tab) 0.4 mg SL [id number] PRN PRN Reason: Chest Pain Ondansetron HCl (Ondansetron 4 Mg/2 Ml Inj) 4 mg IV Q8HR PRN PRN Reason: Nausea And Vomiting Ondansetron HCl (Ondansetron 4 Mg Odt) 4 mg PO Q8HR PRN PRN Reason: Nausea And Vomiting Pantoprazole Sodium (Pantoprazole Dr 20 Mg Tablet) 20 mg PO 0600 [facility] Last Admin: 05/15/23 06:14 Dose: 20 mg Documented By: Sennosides (Sennosides 8.6 Mg Tablet) 17.2 mg PO BEDTIME [facility] Last Admin: 05/14/23 21:25 Dose: Not Given Documented By: SR Vital Signs Vital signs: Vital Signs - 8 hr 05/14/23 14:38 05/14/23 15:02 05/14/23 15:03 Temperature 98.0 F Pulse Rate 83 73 76 Respiratory Rate 18 15 18 Blood Pressure 141/83 H Pulse Oximetry 99 96 96 Oxygen Delivery Method Room Air 05/14/23 15:03 05/14/23 15:30 05/14/23 15:30 Temperature Pulse Rate 79 Respiratory Rate 19 Blood Pressure 155/79 H 132/82 Pulse Oximetry 95 Oxygen Delivery Method 05/14/23 16:00 05/14/23 16:00 05/14/23 16:30 Temperature Pulse Rate 77 Respiratory Rate 19 Blood Pressure 145/79 H 144/82 H Pulse Oximetry 95 Oxygen Delivery Method 05/14/23 16:30 05/14/23 17:00 05/14/23 17:00 Temperature Pulse Rate 75 71 Respiratory Rate 21 23 Blood Pressure 123/74 Pulse Oximetry 97 Oxygen Delivery Method 05/14/23 17:30 05/14/23 17:30 05/14/23 18:00 Temperature Pulse Rate 74 77 Respiratory Rate 23 23 Blood Pressure 128/72 Pulse Oximetry 96 95 Oxygen Delivery Method 05/14/23 18:00 05/14/23 18:30 05/14/23 18:30 Temperature Pulse Rate 70 Respiratory Rate 18 Blood Pressure 125/75 129/77 Pulse Oximetry 98 Oxygen Delivery Method MDM - Chest Pain <Fred Mederos MD - Last Filed: 05/19/23 12:49> Lab Data 05/14/23 22:10 05/15/23 04:35 Labs: Lab Results 05/14/23 05/14/23 Range/Units 14:50 18:37 WBC 6.2 (4.5-11.0) X10^3/uL RBC 4.20 L (4.5-5.9) X10^6/uL Hgb 14.1 (13.5-17.5) g/dL Hct 40.4 L (41-53) % MCV 96.2 (80-100) fL MCH 33.6 (26-34) PG MCHC 35.0 (30-36) % RDW 13.5 (11.6-14.8) % Plt Count 177 (150-400) X10^3/uL Neut % (Auto) 70.3 (50-75) % Lymph % (Auto) 22.2 L (25-40) % [place] % (Auto) 5.8 (3-14) % Eos % (Auto) 1.1 L (2-4) % Baso % (Auto) 0.6 (0-2) % Neut # (Auto) 4300 (0895-5980) /uL Lymph # (Auto) 1400 (3444-9704) /uL [place] # (Auto) 400 (0-900) /uL Eos # (Auto) 100 (0-450) /uL Baso # (Auto) 0 (0-100) /uL PT 10.9 (9.4-12.5) SECONDS INR 1.0 (0.9-1.3) APTT 37 H (25.1-36.5) SECONDS Sodium 136 L (137-145) mmol/L Potassium 4.0 (3.4-5.1) mmol/L Chloride 101 (98-107) mmol/L Carbon Dioxide 28 (22-32) mmol/L BUN 25 H (9-20) mg/dL Creatinine 0.99 (0.66-1.25) mg/dL Estimated GFR > 60 (>60) mL/min BUN/Creatinine Ratio 25.3 H (6-22) Glucose 120 H (80-110) mg/dL Calcium 10.0 (8.4-10.2) mg/dL Magnesium 1.8 (1.6-2.3) mg/dL Total Bilirubin 0.7 (0.2-1.3) mg/dL AST 90 H (17-59) IU/L ALT 65 H (<50) IU/L Alkaline Phosphatase 78 (38-126) U/L Total Creatine Kinase 99 89 (55-170) U/L Troponin I < 0.012 < 0.012 (0.01-0.034) ng/mL Total Protein 7.5 (6.3-8.2) g/dL Albumin 4.7 (3.5-5.0) g/dL Globulin 2.8 (1.7-4.1) g/dL Albumin/Globulin Ratio 1.7 (1.0-2.8) Lipase 88 (23-300) U/L Imaging Data Chest x-ray: Radiologist's Impression: [address] [address] XRay Report Signed Patient: Bobo Barclay MR#: [id number] : 1955 Acct:[id number] Age/Sex: 68 / M Date of Service: 05/14/23 Loc: ED Accession Number: [id number] Procedure: XR chest 1V Ordering Provider: Fred Mederos MD PROCEDURE: XR CHEST 1V INDICATIONS: chest pain TECHNIQUE: One view of the chest was acquired. COMPARISON: [facility], CR, XR CHEST 2V, 04/27/2022, 23:58. [facility], , XR CHEST 1V, 03/25/2018, 13:11. FINDINGS: Surgical changes and devices: None. Lungs and pleura: Lungs are clear. No pleural effusions or pneumothorax. Mediastinum: Mediastinal contours appear normal. Heart size is normal. Bones and chest wall: No suspicious bony lesions. Overlying soft tissues appear unremarkable. IMPRESSION: No acute cardiopulmonary abnormality is seen. Dictated by: Sanket Butcher M.D. on 05/14/2023 at 15:38 Approved by: Sanket Butcher M.D. on 05/14/2023 at 15:38 [facility] Narrative Medical decision making narrative: Patient here with . Had onset of chest pain at 2:00 p.m. today. It has now resolved. Patient has history of hypertension hyperlipidemia diabetes. Strong family history of coronary artery disease, both parents had MIs in their 50s. Last stress test was more than 5 years ago. Patient of recently in the past couple weeks has been exerting and working hard, placing bark down in his yd. In addition he helped his sister move item in a storage unit today. Afterwards he developed chest pain left side pressure radiating to the arm. No nausea sweating or syncope. After history and exam troponin x2 EKG chest x-ray CBC CMP aspirin, patient is chest pain-free. No nitro given or needed [facility] Medical records reviewed: No recent visit for this complaint Differential considered: Includes but not limited to STEMI non-STEMI angina pneumothorax pulmonary embolism Lab Test results independently reviewed as above. Pertinent findings: Troponin less than 0.012 BUN 25 creatinine 0.99 GFR greater than 60 Independently reviewed EKG normal sinus rhythm rate [address] elevation or depression Imaging studies independently reviewed: Chest x-ray no acute finding Consultations: 5:00 p.m., spoke with Cardiology, dr villagomez, recommends admit for stress test Treatments: Aspirin Re-evaluations: Patient and agree and understand need for admission. However 2nd troponin is pending at 6:00 p.m.. Discussion: Appropriate for admission. Patient chest pain-free. Patient has significant risk factors for coronary disease. I have called nuclear medicine and ordered the stress test as there is a slot available tomorrow for stress test. Diagnosis: Chest pain 6:[address] Mederos: Sign out to Dr. Cee 2nd troponin is pending and need to call hospitalist for admission. Cardiology has been consulted already <Sharon Cee MD - Last Filed: 05/14/23 19:44> Lab Data Labs: Lab Results 05/14/23 05/14/23 Range/Units 14:50 18:37 WBC 6.2 (4.5-11.0) X10^3/uL RBC 4.20 L (4.5-5.9) X10^6/uL Hgb 14.1 (13.5-17.5) g/dL Hct 40.4 L (41-53) % MCV 96.2 (80-100) fL MCH 33.6 (26-34) PG MCHC 35.0 (30-36) % RDW 13.5 (11.6-14.8) % Plt Count 177 (150-400) X10^3/uL Neut % (Auto) 70.3 (50-75) % Lymph % (Auto) 22.2 L (25-40) % [place] % (Auto) 5.8 (3-14) % Eos % (Auto) 1.1 L (2-4) % Baso % (Auto) 0.6 (0-2) % Neut # (Auto) 4300 (5365-7910) /uL Lymph # (Auto) 1400 (3726-1877) /uL [place] # (Auto) 400 (0-900) /uL Eos # (Auto) 100 (0-450) /uL Baso # (Auto) 0 (0-100) /uL PT 10.9 (9.4-12.5) SECONDS INR 1.0 (0.9-1.3) APTT 37 H (25.1-36.5) SECONDS Sodium 136 L (137-145) mmol/L Potassium 4.0 (3.4-5.1) mmol/L Chloride 101 (98-107) mmol/L Carbon Dioxide 28 (22-32) mmol/L BUN 25 H (9-20) mg/dL Creatinine 0.99 (0.66-1.25) mg/dL Estimated GFR > 60 (>60) mL/min BUN/Creatinine Ratio 25.3 H (6-22) Glucose 120 H (80-110) mg/dL Calcium 10.0 (8.4-10.2) mg/dL Magnesium 1.8 (1.6-2.3) mg/dL Total Bilirubin 0.7 (0.2-1.3) mg/dL AST 90 H (17-59) IU/L ALT 65 H (<50) IU/L Alkaline Phosphatase 78 (38-126) U/L Total Creatine Kinase 99 89 (55-170) U/L Troponin I < 0.012 < 0.012 (0.01-0.034) ng/mL Total Protein 7.5 (6.3-8.2) g/dL Albumin 4.7 (3.5-5.0) g/dL Globulin 2.8 (1.7-4.1) g/dL Albumin/Globulin Ratio 1.7 (1.0-2.8) Lipase 88 (23-300) U/L [facility] Narrative Medical decision making narrative: Patient here with . Had onset of chest pain at 2:00 p.m. today. It has now resolved. Patient has history of hypertension hyperlipidemia diabetes. Strong family history of coronary artery disease, both parents had MIs in their 50s. Last stress test was more than 5 years ago. Patient of recently in the past couple weeks has been exerting and working hard, placing bark down in his yd. In addition he helped his sister move item in a storage unit today. Afterwards he developed chest pain left side pressure radiating to the arm. No nausea sweating or syncope. After history and exam troponin x2 EKG chest x-ray CBC CMP aspirin, patient is chest pain-free. No nitro given or needed [facility] Medical records reviewed: No recent visit for this complaint Differential considered: Includes but not limited to STEMI non-STEMI angina pneumothorax pulmonary embolism Lab Test results independently reviewed as above. Pertinent findings: Troponin less than 0.012 BUN 25 creatinine 0.99 GFR greater than 60 Independently reviewed EKG normal sinus rhythm rate [address] elevation or depression Imaging studies independently reviewed: Chest x-ray no acute finding Consultations: 5:00 p.m., spoke with Cardiology, dr villagomez, recommends admit for stress test Treatments: Aspirin Re-evaluations: Patient and agree and understand need for admission. However 2nd troponin is pending at 6:00 p.m.. Discussion: Appropriate for admission. Patient chest pain-free. Patient has significant risk factors for coronary disease. I have called nuclear medicine and ordered the stress test as there is a slot available tomorrow for stress test. Diagnosis: Chest pain 6:[address] Mederos: Sign out to Dr. Cee 2nd troponin is pending and need to call hospitalist for admission. Cardiology has been consulted already Dr Cee - 2hr troponin negative. Admitted for observation Discharge Plan Departure Patient Disposition: Admitted as Observation Clinical Impression: Chest pain Qualifiers: Chest pain type: unspecified Qualified Code(s): R07.9 - Chest pain, unspecified Admit Date/Time: 05/14/23 19:44 Admit Provider: Davis Ledbetter
--- NOTE | 2023-05-14 16:20 | DI.ECHO.S_ITS ---
[place] [facility]---------[facility] +---------+ : : [address] : : : : [id number] : : : : Phone: [phone]+ Echocardiogram Report + + :Name: GIULIANA MACIEL Study Date: 05/15/2023 Height: 71 in : :[facility] ReadingLocation: Weight: 232 lb : : Gender: Male BSA: 2.2 m2 : :: 1955 Age: 68 yrs BP: 122/77 mmHg: :Reason For Study: CHEST PAIN : :Ordering Physician: GISEL, : :CLARA Performed By: Vickie Mario : :Referring: CLARA BATRES : + + Interpretation Summary The left ventricle is normal in size and wall thickness. The left ventricular ejection fraction is normal. The ejection fraction is estimated to be 60-65%. The right ventricle is normal in size and function. No significant valvular pathology seen. The IVC is of normal diameter and collapses greater than 50% with a sniff. This suggests a low right atrial pressure of 3 mm Hg. Procedure: A two-dimensional transthoracic echocardiogram with color flow and Doppler was performed. The study quality was technically adequate. There is no prior echocardiogram noted for this patient. The patient was in sinus bradycardia with heart rates between 59-64 bpm during the exam. Left Ventricle: The left ventricle is normal in size and wall thickness. There is no thrombus. The ejection fraction is estimated to be 60-65%. The left ventricular ejection fraction is normal. There are no focal wall motion abnormalities. Diastolic parameters suggest a relaxation abnormality of the left ventricle, consistent with probable normal filling pressures. Right Ventricle: The right ventricle is normal in size and function. Atria: The left atrial size is normal. The right atrium is normal in size. There is no Doppler evidence for an interatrial shunt. Mitral Valve: The mitral valve is normal in structure and function. There is no mitral regurgitation noted. Aortic Valve: The aortic valve is trileaflet. The aortic valve is mildly calcified. There is no aortic valve stenosis. No aortic regurgitation is present. Tricuspid Valve: The tricuspid valve is normal in structure and function. No tricuspid regurgitation. Pulmonary artery pressures cannot be estimated because of the lack of a measurable TR jet velocity. Pulmonic Valve: The pulmonic valve leaflets are thin and pliable; valve motion is normal. There is trace pulmonic regurgitation. Great Vessels: The aortic root is normal size. The dimensions of the ascending aorta are normal. The IVC is of normal diameter and collapses greater than 50% with a sniff. This suggests a low right atrial pressure of 3 mm Hg. Pericardium/ Pleura There is no pericardial effusion. There is no pleural effusion. MMode/2D Measurements & Calculations LVIDd: 4.5 cm LVOT diam: 2.3 cm LVIDs: 3.1 cm Ao root diam: 3.5 cm FS: 30.6 % asc Aorta Diam: 3.3 cm EPSS: 0.86 cm Ao Arch Diam (Prox Trans): 3.1 cm IVSd: 1.1 cm LVPWd: 1.0 cm LV wheeler. diameter/BSA (cm/m^2): 2.0 LV sys. diameter/BSA (cm/m^2): 1.4 LA A2 area: 19.3 cm2 RA long axis: 4.6 cm LA A4 area: 19.0 cm2 RA area: 12.6 cm2 LA length (vol): 5.6 cm RA vol: 29.4 ml LA vol: 55.4 ml RA : 13.1 ml/m2 LA vol index: 24.7 ml/m2 IVC diam: 1.6 cm RVD1 (basal): 3.9 cm TAPSE: 1.7 cm Doppler Measurements & Calculations Ao V2 max: 165.1 cm/sec LVOT Max Ward: 112.2 cm/sec Ao V2 mean: 117.1 cm/sec LV V1 max P.0 mmHg Ao max P.9 mmHg LV V1 VTI: 22.0 cm Ao mean P.0 mmHg RANJEET(I,D): 2.7 cm2 Ao V2 VTI: 34.3 cm RANJEET(V,D): 2.9 cm2 sev ratio: 0.64 RANJEET indexed to BSA (cm^2/m^2): 1.2 MV E max ward: 66.5 cm/sec PA V2 max: 106.7 cm/sec MV A max ward: 81.7 cm/sec PA V2 mean: 67.2 cm/sec MV E/A: 0.81 PA mean P.2 mmHg Med Peak E' Ward: 6.0 cm/sec PA pr(Accel): 34.5 mmHg E/E' med: 11.0 Lat Peak E' Ward: 9.1 cm/sec E/E' lat: 7.3 E/e' average: 9.1 MV dec time: 0.22 sec SV(LVOT): 93.5 ml Reading Physician:11:27 AM
[2023-05-14] MEDS: ASPIRIN 81 MG CHEW TAB 324 MG PO (16:38)
[2023-05-14 18:54] LABS: Creatine Kinase 89 U/L (55-170)
[2023-05-14 19:06] LABS: Troponin I < 0.012 ng/mL (0.01-0.034)
--- NOTE | 2023-05-14 19:16 | PC.NURSE ---
Gave patient an egg sandwich and water with Dr Cee verbal to give food. Pt tolerated pO intake well. Pt able to ambulate to the bathroom without assistance.
[2023-05-14] MEDS: ATORVASTATIN 20 MG TABLET PO (21:28)
--- NOTE | 2023-05-14 21:36 | P.HP_ITS ---
History of Present Illness History of Present Illness Date Patient Seen: 05/14/23 Time Patient Seen: 21:37 Chief complaint: chest pain, numbness L arm Narrative: The pt is a 68 yo who was driving today and had a sudden onset of chest pain in the left of the sternum that radiated to the left arm, constant dull achey, lasting 45 minutes associated with light headedness but no diaphoresis or N/V. He has had very mild chest pain in the past and a stress test 5 years ago which he states was negative. 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 Both of his parents suffered AL's before the age of 50. 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 Gross hematuria Mixed hyperlipidemia DM type 2 with diabetic dyslipidemia Secondhand smoke exposure History of prostate cancer Hearing loss Sleep apnea (~2018) Essential hypertension Surgical History Hx of circumcision Hx of vasectomy Hx of prostate biopsy Anesthesia History of prostatectomy (~05/2012) Family History Father History of heart disease Hypertension Smoker Mother History of heart disease Hypertension Smoker Sister Hypertension Social History 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: , 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, 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, 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 number of children: 1 household members: spouse and children Smoking Status: Former smoker alcohol intake: current caffeine: Yes Type(s) of exercise: other frequency: 3-4 times per week duration: 60-90 minutes/day Meds Home Medications and Allergies Home Medications Medication Instructions Recorded Confirmed Type turmeric 1 tab PO DAILY 03/25/18 05/14/23 History cholecalciferol (vitamin D3) 50 50 mcg PO DAILY 12/24/21 05/14/23 History mcg (2,000 unit) capsule magnesium 200 mg tablet 400 mg PO DAILY 12/24/21 05/14/23 History omega 2-brk-tvl-fish oil 1,200 mg 1,200 cap PO DAILY 12/24/21 05/14/23 History (144 mg-216 mg) capsule (Fish Oil) liver refresh 1 tab PO BID 01/24/22 05/14/23 History zinc gluconate 50 mg tablet 50 mg PO DAILY 01/24/22 05/14/23 History lisinopril 20 1 tab PO DAILY #90 tabs 01/06/23 05/14/23 Rx mg-hydrochlorothiazide 25 mg tablet allopurinol 300 mg tablet 300 mg PO DAILY #90 tabs 03/25/23 05/14/23 Rx metformin 500 mg tablet 500 mg PO BIDWMEAL #180 tabs 03/25/23 05/14/23 Rx simvastatin 40 mg tablet 40 mg PO BEDTIME #90 tabs 03/25/23 05/14/23 Rx Allergies Allergy/AdvReac Type Severity Reaction Status Date / Time No Known Drug Allergies Allergy Verified 05/14/23 14:38 Exam Vital Signs (past 8 hours): - 05/14/23 14:38 05/14/23 15:02 05/14/23 15:03 Temperature 98.0 F Pulse Rate 83 73 76 Respiratory Rate 18 15 18 Blood Pressure 141/83 H Pulse Oximetry 99 96 96 Oxygen Delivery Method Room Air Oxygen Flow Rate 05/14/23 15:03 05/14/23 15:30 05/14/23 15:30 Temperature Pulse Rate 79 Respiratory Rate 19 Blood Pressure 155/79 H 132/82 Pulse Oximetry 95 Oxygen Delivery Method Oxygen Flow Rate 05/14/23 16:00 05/14/23 16:00 05/14/23 16:30 Temperature Pulse Rate 77 Respiratory Rate 19 Blood Pressure 145/79 H 144/82 H Pulse Oximetry 95 Oxygen Delivery Method Oxygen Flow Rate 05/14/23 16:30 05/14/23 17:00 05/14/23 17:00 Temperature Pulse Rate 75 71 Respiratory Rate 21 23 Blood Pressure 123/74 Pulse Oximetry 97 Oxygen Delivery Method Oxygen Flow Rate 05/14/23 17:30 05/14/23 17:30 05/14/23 18:00 Temperature Pulse Rate 74 77 Respiratory Rate 23 23 Blood Pressure 128/72 Pulse Oximetry 96 95 Oxygen Delivery Method Oxygen Flow Rate 05/14/23 18:00 05/14/23 18:30 05/14/23 18:30 Temperature Pulse Rate 70 Respiratory Rate 18 Blood Pressure 125/75 129/77 Pulse Oximetry 98 Oxygen Delivery Method Oxygen Flow Rate 05/14/23 19:00 05/14/23 19:00 05/14/23 19:30 Temperature Pulse Rate 69 73 Respiratory Rate 29 H 19 Blood Pressure 145/86 H Pulse Oximetry 96 95 Oxygen Delivery Method Oxygen Flow Rate 05/14/23 19:30 05/14/23 20:00 05/14/23 20:00 Temperature Pulse Rate 75 Respiratory Rate 19 Blood Pressure 139/77 136/71 Pulse Oximetry 94 Oxygen Delivery Method Oxygen Flow Rate 05/14/23 21:17 Temperature 97.3 F L Pulse Rate 75 Respiratory Rate 22 Blood Pressure 151/74 H Pulse Oximetry 96 Oxygen Delivery Method Oxygen Flow Rate 0 Oxygen Delivery Method Room Air Oxygen Flow Rate 0 Const General: cooperative and healthy appearing Nutritional Appearance: average body habitus Resp Effort & Inspection: normal respiratory effort Auscultation: clear to auscultation bilaterally Cardio Rate: regular rate Rhythm: regular rhythm Objective Labs 05/14/23 14:50 05/14/23 14:50 Labs: Laboratory Results - last 24 hr 05/14/23 05/14/23 14:50 18:37 WBC 6.2 RBC 4.20 L Hgb 14.1 Hct 40.4 L MCV 96.2 MCH 33.6 MCHC 35.0 RDW 13.5 Plt Count 177 Neut % (Auto) 70.3 Lymph % (Auto) 22.2 L [place] % (Auto) 5.8 Eos % (Auto) 1.1 L Baso % (Auto) 0.6 Neut # (Auto) 4300 Lymph # (Auto) 1400 [place] # (Auto) 400 Eos # (Auto) 100 Baso # (Auto) 0 PT 10.9 INR 1.0 APTT 37 H Sodium 136 L Potassium 4.0 Chloride 101 Carbon Dioxide 28 BUN 25 H Creatinine 0.99 Estimated GFR > 60 BUN/Creatinine Ratio 25.3 H Glucose 120 H Calcium 10.0 Magnesium 1.8 Total Bilirubin 0.7 AST 90 H ALT 65 H Alkaline Phosphatase 78 Total Creatine Kinase 99 89 Troponin I < 0.012 < 0.012 Total Protein 7.5 Albumin 4.7 Globulin 2.8 Albumin/Globulin Ratio 1.7 Lipase 88 Assessment & Plan Assessment and plan (1) Chest pain: Qualifiers: Chest pain type: unspecified Qualified Code(s): R07.9 - Chest pain, unspecified Status: Acute (2) Mixed hyperlipidemia: Status: Acute (3) DM type 2 with diabetic dyslipidemia: Status: Acute (4) Essential hypertension: Status: Chronic Plan I spoke with the ER provider and agree with the decision for admission. Will monitor the pt on telemetry, 2 troponins have been completed and are within normal limits. He is currently asymptomatic, but SL NTG ordered, tylenol, ativan prn. checking lipids in the morning, as well as another set of troponin and labs. Stress test for the morning. PRN HTN meds available, reviewed pt's home meds.
[2023-05-14 22:29] LABS: Add Manual Diff / Slide Review NO; Basophils Absolute Auto 0 /uL (0-100); Basophils Percent Auto 0.5 % (0-2); Eosinophils Absolute Auto 100 /uL (0-450); Eosinophils Percent Auto 1.7 % (2-4); Hematocrit 39.6 % (41-53); Hemoglobin 13.8 g/dL (13.5-17.5); Lymphocytes Absolute Auto 1600 /uL (1100-4500); Lymphocytes Percent Auto 29.2 % (25-40); Mean Corpuscular HGB Conc 34.9 % (30-36); Mean Corpuscular Hemoglobin 33.4 PG (26-34); Mean Corpuscular Volume 95.6 fL (80-100); Monocytes Absolute Auto 400 /uL (0-900); Monocytes Percent Auto 7.2 % (3-14); Neutrophils Absolute Auto 3300 /uL (1500-7000); Neutrophils Percent Auto 61.4 % (50-75); Platelet Count 169 X10^3/uL (150-400); Red Blood Cell Count 4.14 X10^6/uL (4.5-5.9); Red Cell Distribution Width 13.6 % (11.6-14.8); White Blood Cell Count 5.3 X10^3/uL (4.5-11.0)
[2023-05-14] MEDS: MELATONIN 3 MG TABLET 6 MG PO (22:29)
[2023-05-14 23:04] LABS: BUN Creatinine Ratio 30.3 (6-22); Blood Urea Nitrogen 23 mg/dL (9-20); Carbon Dioxide 28 mmol/L (22-32); Chloride 102 mmol/L (98-107); Cholesterol 156 mg/dL (140-199); Estimated Glomerular Filt Rate > 60 mL/min (>60); Glucose 118 mg/dL (80-110); HDL Cholesterol 61 mg/dL (40-60); HEMOLYSIS 16 (0-50); LDL Cholesterol Calculated 55 mg/dL (<100); Potassium 3.5 mmol/L (3.4-5.1); Sodium 136 mmol/L (137-145); Triglycerides 200 mg/dL (35-150)
[2023-05-15 04:41] VITALS: BP 122/77; PULSE 66; RESP 17; TEMP 36.7; O2SAT 97
[2023-05-15 05:32] LABS: Troponin I < 0.012 ng/mL (0.01-0.034)
[2023-05-15] MEDS: PANTOPRAZOLE DR 20 MG TABLET PO (06:14)
[2023-05-15 08:00] VITALS: O2SAT 97
[2023-05-15 09:01] VITALS: BP 126/76
[2023-05-15] MEDS: lisinopriL 20 MG TABLET PO (09:01)
[2023-05-15] MEDS: allopurinoL 100 MG TABLET 300 MG PO (09:01)
[2023-05-15] MEDS: hydroCHLOROthiazide 25 MG TABLET PO (09:01)
[2023-05-15 09:40] VITALS: BP 126/76; PULSE 74; RESP 16; TEMP 36.8; O2SAT 94
[2023-05-15 10:29] LABS: BUN Creatinine Ratio 27.4 (6-22); Blood Urea Nitrogen 20 mg/dL (9-20); Calcium 10.2 mg/dL (8.4-10.2); Carbon Dioxide 27 mmol/L (22-32); Chloride 103 mmol/L (98-107); Estimated Glomerular Filt Rate > 60 mL/min (>60); Glucose 111 mg/dL (80-110); HEMOLYSIS < 15 (0-50); Potassium 3.7 mmol/L (3.4-5.1); Sodium 137 mmol/L (137-145)
--- NOTE | 2023-05-15 13:27 | CM.DANOTE ---
DCP Assessment Note Pt is a 68yo M here following chest pains. Echo and stress tests being done today, 05.15.23. PCP Wilfrid Kowalski Payer Medicare and [employer] SCRAP BALLER reviewed EMR. Pt here under OBS. Per hospitalist in morning rounds, anticipate dc home today pending Echo/Stress test WNL. Per chart review, pt has had interpersonal stressors/grief recently and has been working hard in yard. He had a 45 min period of chest pain that has since passed. Per RN, no obvious CM needs identified. SCRAP BALLER met with pt and spouse Jenna in room. Pt reports grief and stress lately in interpersonal life that he believes may have been an additional cause of chest pain. Spouse reports they have shower chair, walker, scooter, and other equip at home in anticipation of her upcoming foot surgery. Pt is normally active/indep at baseline. Deny any CM needs at this time. Plan: Anticipate home today with spouse, no other CM needs anticipated. CM team will follow as needed. KEVIN Montalvo Discharge Planning/Care Management Advanced directive, confirm from FAMILY Start: 05/14/23 20:55 Freq: Q24H Status: Active Protocol: Document 05/14/23 20:55 SR (Rec: 05/14/23 21:27 SR [id number]) Advance Directive, confirm on record Time 21:27 Person contacted patient Copy received No CM Discharge Assessment Start: 05/15/23 13:25 Freq: Status: Active Protocol: Document 05/15/23 13:25 SL (Rec: 05/15/23 13:27 SL [id number]) Discharge Planning Assessment Assigned Pigment Weigher KEVIN Sagastume DPOA/Assigned Designee Name amarilys West Contact Information [phone] Advance Directives? Yes Advance Directives on File No History Provided By Patient,Medical Record Prior Living Arrangements House Household Members spouse,children Type of transporation used prior to Drives own vehicle admit Independent with ADL's Yes Is patient alert and oriented? Yes Comment shower chair, walker, and scooter all at home and available if needed. Barriers to Discharge No Discharge Plan Home Transportation Arrangement spouse in POV Referrals Initiated None needed Whiteboard Updated in Patient Room with Yes name and ext. # of Pigment Weigher Review Status In Process Next Review Type Continued Stay Review
--- NOTE | 2023-05-15 14:26 | P.DS_ITS ---
History of Present Illness History of Present Illness Date Patient Seen: 05/15/23 Time Patient Seen: 14:27 Chief complaint: chest pain, numbness L arm Narrative: The pt is a 68 yo who was driving today and had a sudden onset of chest pain in the left of the sternum that radiated to the left arm, constant dull achey, lasting 45 minutes associated with light headedness but no diaphoresis or N/V. He has had very mild chest pain in the past and a stress test 5 years ago which he states was negative. 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 Both of his parents suffered AR's before the age of 50. Discharge Providers Provider Date of admission: 05/14/23 19:44 Discharge Date: 05/15/23 Primary care physician: Wilfrid Kowalski MD Discharge provider: Tamir Wing DO Summary Hospital Course Discharge Diagnosis: (1) Chest pain: Qualifiers: Chest pain type: unspecified Qualified Code(s): R07.9 - Chest pain, unspecified Status: Acute (2) Mixed hyperlipidemia: Status: Acute (3) DM type 2 with diabetic dyslipidemia: Status: Acute (4) Essential hypertension: Status: Chronic Hospital Course: 68 M with PMH of DM2, HTN, HLD who presented after an episode of chest pain. He reported increased stress, and previous panic attacks in the setting of what sounds to be triggered events based on previous emotional traumatic experiences. Stress testing and echocardiogram were unremarkable. Patient and spouse asked about medications for prevention, mainly focused on anxiety / stress. We discussed that sometimes reflux medications can be trialed for possible GERD, but also discussed that benzodiazepines can be effective but have high addictive potential. There is similar efficacy with talk based therapy. He was not interested in medication interventions at this time, and I encouraged the patient to search for resources for talk based therapy. Time Spent with Patient Time spent: Greater than 30 minutes Exam Vital Signs (past 8 hours): - 05/15/23 08:00 05/15/23 09:01 05/15/23 09:40 Temperature 98.2 F Pulse Rate 74 Respiratory Rate 16 Blood Pressure 126/76 126/76 Pulse Oximetry 97 94 Oxygen Delivery Method Room Air Oxygen Flow Rate 0 Oxygen Delivery Method Room Air Oxygen Flow Rate 0 Narrative Exam Narrative: Gen: No acute disress CV: RRR Pulm: No respiratory distress Ext: no edema Objective Labs 05/14/23 22:10 05/15/23 04:35 Labs: Laboratory Results - last 24 hr 05/14/23 05/14/23 05/14/23 14:50 18:37 22:10 WBC 6.2 5.3 RBC 4.20 L 4.14 L Hgb 14.1 13.8 Hct 40.4 L 39.6 L MCV 96.2 95.6 MCH 33.6 33.4 MCHC 35.0 34.9 RDW 13.5 13.6 Plt Count 177 169 Neut % (Auto) 70.3 61.4 Lymph % (Auto) 22.2 L 29.2 [place] % (Auto) 5.8 7.2 Eos % (Auto) 1.1 L 1.7 L Baso % (Auto) 0.6 0.5 Neut # (Auto) 4300 3300 Lymph # (Auto) 1400 1600 [place] # (Auto) 400 400 Eos # (Auto) 100 100 Baso # (Auto) 0 0 PT 10.9 INR 1.0 APTT 37 H Sodium 136 L 136 L Potassium 4.0 3.5 Chloride 101 102 Carbon Dioxide 28 28 BUN 25 H 23 H Creatinine 0.99 0.76 Estimated GFR > 60 > 60 BUN/Creatinine Ratio 25.3 H 30.3 H Glucose 120 H 118 H Calcium 10.0 10.0 Magnesium 1.8 Total Bilirubin 0.7 AST 90 H ALT 65 H Alkaline Phosphatase 78 Total Creatine Kinase 99 89 Troponin I < 0.012 < 0.012 Total Protein 7.5 Albumin 4.7 Globulin 2.8 Albumin/Globulin Ratio 1.7 Triglycerides 200 H Cholesterol 156 LDL Cholesterol, Calc 55 HDL Cholesterol 61 H Lipase 88 05/15/23 04:35 WBC RBC Hgb Hct MCV MCH MCHC RDW Plt Count Neut % (Auto) Lymph % (Auto) [place] % (Auto) Eos % (Auto) Baso % (Auto) Neut # (Auto) Lymph # (Auto) [place] # (Auto) Eos # (Auto) Baso # (Auto) PT INR APTT Sodium 137 Potassium 3.7 Chloride 103 Carbon Dioxide 27 BUN 20 Creatinine 0.73 Estimated GFR > 60 BUN/Creatinine Ratio 27.4 H Glucose 111 H Calcium 10.2 Magnesium Total Bilirubin AST ALT Alkaline Phosphatase Total Creatine Kinase Troponin I < 0.012 Total Protein Albumin Globulin Albumin/Globulin Ratio Triglycerides Cholesterol LDL Cholesterol, Calc HDL Cholesterol Lipase PFSH Medical History History of actinic keratoses Chondromalacia, right knee History of colonic polyps 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 Gross hematuria Mixed hyperlipidemia DM type 2 with diabetic dyslipidemia Secondhand smoke exposure History of prostate cancer Hearing loss Sleep apnea (~2018) Essential hypertension Surgical History Hx of circumcision Hx of vasectomy Hx of prostate biopsy Anesthesia History of prostatectomy (~05/2012) Family History Father History of heart disease Hypertension Smoker Mother History of heart disease Hypertension Smoker Sister Hypertension Social History 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 Stress testing and echocardiogram was normal. Please follow up with Dr. Kowalski to review your admission, discuss possible further evaluation. Discharge orders & Medications Prescriptions: Continued lisinopril-hydrochlorothiazide 20-25 mg tablet 1 tab PO DAILY Qty: 90 3RF simvastatin 40 mg tablet 40 mg PO BEDTIME Qty: 90 3RF metformin 500 mg tablet 500 mg PO BIDWMEAL Qty: 180 3RF allopurinol 300 mg tablet 300 mg PO DAILY Qty: 90 3RF magnesium 200 mg tablet 400 mg PO DAILY cholecalciferol (vitamin D3) 50 mcg (2,000 unit) capsule 50 mcg PO DAILY omega 0-sjc-are-fish oil [Fish Oil] 1,200 (144-216) mg capsule 1,200 cap PO DAILY turmeric 1 tab PO DAILY zinc gluconate 50 mg tablet 50 mg PO DAILY liver refresh 1 tab PO BID Follow up/Referrals: Wilfrid Kowalski MD [Primary Care Provider] - Diet/Activity/Treatments Diet: Diet as Tolerated and Carb-consistent/Diabetic Activity: As tolerated, no restrictions Visit Report/Discharge Packet Instructions: DI for Chest Pain Stand Alone Forms: Patient Portal/API, Stroke Signs & Symptoms Discharge Data Primary Care Provider: Wilfrid Kowalski V Attending Provider: Davis Ledbetter Admqing Date/Time: 05/14/23 19:44
--- NOTE | 2023-05-15 14:51 | PC.NURSE ---
Pt dressed and ready to go. Pt has belongings. Confirmed absence of IV and telemetry. Education was given on chest pain, home meds, and s/sx of stroke. pt denied having any questions. pt transported via wheelchair to [facility] with spouse.
--- NOTE | 2023-05-15 16:22 | DI.NM.S_ITS ---
DATE OF SERVICE: 05/15/2023 PROCEDURE: Pharmacological perfusion study. INDICATION: Chest pain with underlying diabetes mellitus, hypertension, hyperlipidemia. RADIOPHARMACEUTICAL: 26.3 millicuries technetium-99m Myoview IV was injected at stress and 10.0 millicuries technetium-99m Myoview IV was injected at rest. CARDIAC STRESS: The patient underwent IV Lexiscan perfusion study under the supervision of an attending staff using standard protocol. The patient remained hemodynamically stable. Resting blood pressure 128/75. Baseline rhythm sinus. During stress, no convincing ischemic changes seen. No significant arrhythmias seen. The patient had some dyspnea. No chest discomfort. RAW DATA: There is increased subdiaphragmatic activity. The patient's weight is 232 pounds. GATED STUDY: Resting LV ejection fraction 70 and stress LV ejection fraction 80% without any obvious wall motion abnormalities. Resting end- diastolic volume 99 mL. TID ratio 0.81 which is within normal limits. Lung/heart ratio 0.38 which is within normal limits. MYOCARDIAL PERFUSION SCAN: Stress supine, resting supine, and stress prone images were compared to each other. Stress supine and resting supine images revealed small size, mildly decreased perfusion of base to mid inferior wall which got completely resolved during stress prone images suggestive of diaphragmatic tissue attenuation artifact. No convincing ischemia infarction pattern seen. CONCLUSION: This is a normal myocardial perfusion study with evidence of diaphragmatic tissue attenuation artifact, which got resolved during prone images. Preserved LV function. Overall, low-risk myocardial perfusion scan. Bobo Barclay - TYLER/juanjo/roberto doc#: [id number]/job#: [id number] dd: 05/15/2023 14:03:00 dt: 05/15/2023 16:15:00 DICTATING MD/COPIES TO: Celsa Lundberg MD COPIES MNE: CLAY;
== END 2023-05-15 14:49 | disposition home or self-care (01) ==
LOC: ED 18:15 → AC 19:45
PROVIDERS: Emergency Medicine; Admitting Provider Internal Medicine; Emergency Provider Emergency Medicine; PCP Internal Medicine; Referring Provider Emergency Medicine; Visit Provider Internal Medicine
DX: R07.9 Chest pain, unspecified (principal); E11.69 Type 2 diabetes mellitus with other specified complication; E78.2 Mixed hyperlipidemia; I10 Essential (primary) hypertension; Z79.84 Long term (current) use of oral hypoglycemic drugs
CPT/HCPCS: 36415; 71045; 78452; 80048; 80053; 80061; 82550; 82962; 83690; 83735; 84484; 85025; 85610; 85730; 93005; 93010; 93017; 93306; 99283; 99284; G0378; A9502; J2785

== ENCOUNTER → 2023-06-25 16:15 | Outpatient (CLI) | payer MEDICARE, SELFPAY ==
[2023-05-14 20:36] VITALS: BMI 32.3
[2023-06-25 17:38] LABS: Alanine Aminotransferase 36 IU/L (<50); Albumin 4.9 g/dL (3.5-5.0); Alkaline Phosphatase 80 U/L (38-126); Aspartate Aminotransferase 36 IU/L (17-59); Bilirubin Total 0.8 mg/dL (0.2-1.3); Bilirubin Unconjugated 0.5 mg/dL (0.0-1.1); Globulin 2.5 g/dL (1.7-4.1); Glucose 144 mg/dL (80-110); HEMOLYSIS < 15 (0-50); Total Protein 7.4 g/dL (6.3-8.2)
[2023-06-25 17:42] LABS: Hemoglobin A1C% w Est Avg Glu 6.6 % (4.0-6.0)
[2023-06-25 21:12] LABS: Creatinine Urine Random 103.2 mg/dL
[2023-06-25 21:17] LABS: Microalbumi Creatinin Ratio Ur 35.8 ug/mg CR (<30); Microalbumin Urine Random 3.7 mg/dL (0-1.6)
== END ==
PROVIDERS: PCP Internal Medicine; Referring Provider Internal Medicine; Visit Provider Internal Medicine
DX: E11.69 Type 2 diabetes mellitus with other specified complication (principal); K75.81 Nonalcoholic steatohepatitis (NASH); E78.5 Hyperlipidemia, unspecified
CPT/HCPCS: 36415; 80076; 82043; 82570; 82947; 83036

== ENCOUNTER → 2023-12-16 10:29 | Outpatient (CLI) | payer MEDICARE, SELFPAY ==
[2023-05-14 20:36] VITALS: BMI 32.3
[2023-12-16 13:38] LABS: Alanine Aminotransferase 56 IU/L (<50); Albumin 4.8 g/dL (3.5-5.0); Albumin Globulin Ratio 2.2 (1.0-2.8); Alkaline Phosphatase 75 U/L (38-126); Aspartate Aminotransferase 62 IU/L (17-59); BUN Creatinine Ratio 29.3 (6-22); Bilirubin Total 0.6 mg/dL (0.2-1.3); Blood Urea Nitrogen 22 mg/dL (9-20); Calcium 10.3 mg/dL (8.4-10.2); Carbon Dioxide 24 mmol/L (22-32); Chloride 100 mmol/L (98-107); Cholesterol 150 mg/dL (140-199); Estimated Glomerular Filt Rate > 60 mL/min (>60); Globulin 2.2 g/dL (1.7-4.1); Glucose 99 mg/dL (80-110); HDL Cholesterol 47 mg/dL (40-60); HEMOLYSIS < 15 (0-50); LDL Cholesterol Calculated 55 mg/dL (<100); Potassium 4.1 mmol/L (3.4-5.1); Sodium 136 mmol/L (137-145); Triglycerides 240 mg/dL (35-150)
[2023-12-16 13:40] LABS: Hemoglobin A1C% w Est Avg Glu 6.6 % (4.0-6.0)
[2023-12-16 14:16] LABS: Prostate Specific Antigen < 0.064 ng/mL (0.10-4.00)
== END ==
PROVIDERS: PCP Internal Medicine; Referring Provider Internal Medicine; Visit Provider Internal Medicine
DX: E11.69 Type 2 diabetes mellitus with other specified complication (principal); Z85.46 Personal history of malignant neoplasm of prostate; E78.5 Hyperlipidemia, unspecified; E78.2 Mixed hyperlipidemia; G47.33 Obstructive sleep apnea (adult) (pediatric); K75.81 Nonalcoholic steatohepatitis (NASH); I10 Essential (primary) hypertension; M10.9 Gout, unspecified; E66.9 Obesity, unspecified; Z68.30 Body mass index [BMI] 30.0-30.9, adult
CPT/HCPCS: 36415; 80053; 80061; 83036; 84153

== ENCOUNTER → 2024-06-24 08:04 | Outpatient (CLI) | payer MEDICARE, SELFPAY ==
[2023-05-14 20:36] VITALS: BMI 32.3
[2024-06-24 08:48] LABS: Hemoglobin A1C% w Est Avg Glu 5.4 % (4.0-6.0)
[2024-06-24 08:57] LABS: Aspartate Aminotransferase 37 IU/L (17-59); BUN Creatinine Ratio 31.6 (6-22); Blood Urea Nitrogen 24 mg/dL (9-20); Calcium 10.2 mg/dL (8.4-10.2); Carbon Dioxide 26 mmol/L (22-32); Chloride 103 mmol/L (98-107); Cholesterol 149 mg/dL (140-199); Estimated Glomerular Filt Rate > 60 mL/min (>60); Glucose 107 mg/dL (70-99); HDL Cholesterol 57 mg/dL (40-60); HEMOLYSIS < 15 (0-50); LDL Cholesterol Calculated 74 mg/dL (<100); Potassium 4.3 mmol/L (3.4-5.1); Sodium 139 mmol/L (137-145); Triglycerides 90 mg/dL (35-150)
[2024-06-24 10:41] LABS: Creatinine Urine Random 311.77 mg/dL
[2024-06-24 10:46] LABS: Microalbumin Urine Random 8.7 mg/dL (0-1.6)
[2024-06-24 15:57] LABS: Hep C Virus Ab w/Reflex Quant NEGATIVE s/c (NEGATIVE)
== END ==
PROVIDERS: PCP Internal Medicine; Referring Provider Internal Medicine; Visit Provider Internal Medicine
DX: E11.69 Type 2 diabetes mellitus with other specified complication (principal); E78.2 Mixed hyperlipidemia; E78.5 Hyperlipidemia, unspecified; Z20.9 Contact with and (suspected) exposure to unspecified communicable disease
CPT/HCPCS: 36415; 80048; 80061; 82043; 82570; 83036; 84450; 86803

== ENCOUNTER → 2024-12-09 09:24 | Outpatient (CLI) | payer MEDICARE, SELFPAY ==
[2023-05-14 20:36] VITALS: BMI 32.3
--- NOTE | 2024-12-09 14:48 | ST.SWALLOW ---
Visit Care Team Role Provider Type Fred Payan DO Attending Provider Non-Staff Family Provider Primary Care Provider Referring Provider Specialty: Internal Medicine Address: [address], [place], [address] Email: Modified Barium Swallow Study DOCUMENT PHOTOGRAPHER Modified Barium Swallow Study Start: 12/09/24 12:46 Freq: Status: Active Protocol: Document 12/09/24 12:47 LNK (Rec: 12/09/24 13:53 LNK Desktop) Modified Barium Swallow Study Total Time Visit Start Time 10:00 Visit Stop Time 10:45 Total Visit Minutes [address] Fred Payan Reason for Referral dysphagia Setting Setting Outpatient Care Patient Information Identification Type Name,Date of Patient History Pt was seen for a Modified Barium swallow Study due to c/o swallowing difficulties have been going on for years. Specifically, he states difficulties swallowing dry, crumbly foods such as croutons or peanuts, which will feel caught in throat resulting in him coughing. He also reports if he drinks liquids too quick he will cough. He states this happens random. He had a MBSS completed at this facility on 06/11/21, with the following impressions: The pt presents with mild-moderate pharyngeal dysphagia secondary to reduced hyolaryngeal elevation and anterior excursion resulting in occasional incomplete airway closure allowing for penetration and aspiration of liquids. Aspiration of NTLs appeared to be silent in nature, although the pt endorsed feeling something. Pt was recently seen for a clinical swallow evaluation (10/20/24) with ST. The results indicated Pt exhibited no overt s/s of aspiration or dysphagia during evaluation, however per Pt report, chart review, clinical judgement and pt hx with swallowing, ST suspects Pt with mild pharyngeal phase dysphagia. ST educated Pt on safe swallowing strategies such as slow rate, small bites/sips, consistent oral care and coughing when he feels he has to cough. ST recommends Pt have another Modified Barium Swallow test , since it has been over 3 years since his last one and d/t ST unable to rule out silent aspiration without an instrumental. Subjective Pt was seated in the flouroscopy chair with directions Observations and procedures explained for him. He indicated he understood and agreed to proceed. Patient Positioning Position View Lat-A/P Imaging Lateral View Textures Administered Trials Presented Thin Liquid via Spoon (IDDSI 0),Thin Liquid via Cup ( IDDSI 0),Extremely Thick Liquid via Spoon (IDDSI 4), Regular (IDDSI 7) Barium Tablet Yes The IDDSI Framework Protocol: IDDSI.1 Oral Impairment Source: The Modified Barium Swallow Impairment Profile (MBSImP??) Lip Closure No labial escape Bolus Preparation/ Timely & efficient chewing & mashing Mastication Bolus Transport/ Brisk tongue motion Lingual Motion Oral Residue Residue collection on oral structures Location Tongue Initiation of Bolus head at pyriforms Pharyngeal Swallow Additional Oral *OME and DKS were observed to be WNL. Impairment *Dentition natural and in good hygiene Observations *Mastication observed with rotary chew pattern. *Good bolus formation, control and AP transition. *Pt bolus hod observed to be anterior with a tongue dipping pattern. This pattern is considered a normal variant *Velopharyngeal closure was WNL Oral phase of swallow WNL Pharyngeal Impairment Source: The Modified Barium Swallow Impairment Profile (MBSImP??) Soft Palate No bolus between soft palate & pharyngeal wall Elevation Laryngeal Elevation Part.sup.move.thyroid cart/part.approx.arytenoids to epiglot.petiole Anterior Hyoid Partial anterior movement Excursion Epiglottic Movement Complete inversion Laryngeal Vestibular Complete; no air/contrast in laryngeal vestibule Closure Pharyngeal Stripping Present - complete Wave Pharyngoesophageal Complete distention & complete duration; no obstruction Segment Opening of flow Tongue Base Narrow column of contrast/air betwn tongue base & post. Retraction pharyngeal wall Pharyngeal Residue Complete pharyngeal clearance Additional *Reduced tongue base retraction and hyoid/laryngeal Pharyngeal elevation Impairment *Complete inversion of the epiglottis Observations *Pharyngeal stripping wave and cricopharyngeal opening appeared adequate and did not appear to impede bolus flow. *Post-swallow residue was minimal *No laryngeal penetration or aspiration was observed. Mild pharyngeal phase dysphagia observed A/P View Textures Administered Trials Presented Thin Liquid via Cup (IDDSI 0) The IDDSI Framework Protocol: IDDSI.1 A/P View Observations Pharyngeal Complete Contraction Esophageal Clearance Esophageal retention w/regtrograde flow below Upright Position pharyngoesoph segment Vocal Fold Function Good Esophageal Function Reverse Peristalsis Additional A-P Thin barium, a cookie and calibrated barium tablet Observations provided for AP trials *Tertiary contraction observed with retro flow of esophageal contents to level of clavicles across barium liquid and cookie trials *Repetitive retro flow of thin barium contents x4 *Small hiatal hernia noted *Barium tablet stopped near hiatal hernia requiring additional swallows of water to clear to the stomach Mild-moderate esophageal dysphagia Clinical Impressions Dysphagia Type Pharyngeal Esophageal Findings Pt presented with mild-moderate pharyngoesophageal dysphagia characterized by weakness of the pharyngeal muscles, reverse esophageal flow of liquid to the level of the clavicles, tertiary contraction and a potential (small) hiatal hernia. Pt noted that he coughs at times when eating/drinking. If pt consumes large amounts of food/ liquids during a meal, as cough may be triggered if some esophageal contents (in retro flow) overflow through the UES near or into the laryngeal vestibule and trigger a cough. Additionally, dry crumbly foods are likely to trigger a cough if near the laryngeal vestibule/UES during swallowing. Pt was encouraged to eat/drink slowly, take frequent breaks and to stay upright after meals for a minimum of 30 minutes to allow his esophagus to empty. Additionally, pt was encouraged to be mindful of swallowing before talking and if distracted by conversation or TV, etc. Pt should return to for safe swallow strategy education. The results and recommendations of the MBSS were described to the pt while observing still pictures taken during the MBSS. All questions were addressed Rehabilitation Excellent Potential Patient Appropriate Yes: Safe swallow strategies for Therapy Recommendations Diet Comments No diet change recommended Aspiration Precautions Recommended Upright at 90 Degrees,Frequent Rest Periods,Small Bites Precautions /Sips Additional Do not lay down immediately after eating/drinking Precautions Treatment Plan Therapy Outpatient Speech Therapy Recommendations Recommended GI Consult Referrals Therapy Strategy Sitting Upright (90 deg),Small Bites and Sips Recommendations
== END ==
PROVIDERS: Family Provider Student in an Organized Health Care Education/Training Program; PCP Student in an Organized Health Care Education/Training Program; Referring Provider Student in an Organized Health Care Education/Training Program; Visit Provider Student in an Organized Health Care Education/Training Program
DX: R13.10 Dysphagia, unspecified (principal)
CPT/HCPCS: 74230; 92611

== ENCOUNTER 2024-12-16 11:30 | Outpatient (RCR) | payer MEDICARE, SELFPAY ==
[2023-05-14 20:36] VITALS: BMI 32.3
--- NOTE | 2024-10-20 11:49 | ST.OPIE ---
Visit Care Team Role Provider Type Fred Payan DO Attending Provider Non-Staff Family Provider Primary Care Provider Referring Provider Specialty: Internal Medicine Address: [address] [place] [address], [id number] Email: Speech-Language Pathology Initial Evaluation PRIMARY HEALTH CARE NURSE Clinical Swallow Evaluation Start: 10/20/24 11:23 Freq: Status: Active Protocol: Document 10/20/24 11:27 MA (Rec: 10/20/24 11:49 MA Desktop) Clinical Swallow Evaluation Session Time Visit Start Time 09:45 Visit Stop Time 10:15 Total Visit Minutes 30 Visit Information Visit Number Initial Eval Plan of Care Dates 10/20/24-01/19/25 Insurance Medicare Information Referral Referring Provider Dr. Payan Reason for Referral Dysphagia Setting Assessment Location Outpatient Care Visit Type Note Type Initial evaluation Next Note Type Next Note Type Treatment Note Patient Information Identification Type Name History Pt is a 69 year old male seen this date for swallow evaluation at the referral of Dr. Payan. He reports his swallowing difficulties have been going on for years. Specifically, he states difficulties swallowing dry, crumbly foods such as croutons or peanuts, which will feel caught in throat resulting in him coughing. He also reports if he drinks liquids too quick he will cough. He states this happens randomly. Pt reports PMHx significant for prostate cancer, bladder cancer, GERD which he takes medication for and utilizes a CPAP machine at night. He had a MBS completed at this facility on 06/11/21, with the following impressions: The pt presents with mild- moderate pharyngeal dysphagia secondary to reduced hyolaryngeal elevation and anterior excursion resulting in occasional incomplete airway closure allowing for penetration and aspiration of liquids. Aspiration of NTLs appeared to be silent in nature, although the pt endorsed feeling something but deliberately suppressed cough so as not to disrupt the exam. Delayed cough via PRIMARY HEALTH CARE NURSE's instruction was not effective in clearing the contrast from the trachea. Additionally, mild weakness at base of tongue and pharyngeal constrictors resulted in mild pharyngeal residue, most notably at vallecula and along aryepiglottic folds. Outpatient dysphagia therapy is recommended for patient education and to increase muscular strength and airway closure to reduce risk of aspiration and worsening symptoms. The pt was educated of initial findings and recommendations, verbalized understanding and agreement. It was recommended that Pt receive outpatient speech therapy, however no documentation that he went through with this. Subjective Pt arrived to evaluation on time. Pleasant and good Observations historian. He states he is retired, however works once a week and lives with his . Reported by Patient/Caregiver Other Symptoms Choking,Coughing,Difficulty swallowing solids,Food gets stuck Current Diet Regular (IDDSI 7) Baseline Feeding Independent in self-feeding Method The IDDSI Framework Protocol: IDDSI.1 Objective Assessment Mental Status Alert,Responsive,Cooperative Oral Integrity WFL Dentition Within normal limits Lip Function Within normal limits Observation of Lips Symmetrical at Rest Pucker Within normal limits Lip Retraction Within normal limits Alternating Pucker/ Within normal limits Lip Retraction Tongue Function Within normal limits Observations of Within normal limits Tongue at Rest Tongue Protrusion Within normal limits Tongue Within normal limits Lateralization Jaw Function Within normal limits Respiratory Within normal limits Sufficiency Food and Liquid Trials Position During Upright (90 degrees) Assessment Liquids Trialed Thin (IDDSI 0) Solid Trials Regular (IDDSI 7) Administration Type Cup single sip,Self-feeding Oral Impairment Within functional limits Oral Phase Comments Pt consumed 4 oz of thin water via cup and 2 alexey crackers. For alexey crackers, he exhibited adequate bite size and rate, adequate mastication and bolus formation, timely ap transport. Pt exhibited no overt s /s of aspiration with alexey crackers such as coughing or choking and denied any feeling of food stuck in throat. For thin liquids, Pt exhibited good oral acceptance and containment, no overt s/s of aspiration. Pt independently alternated liquids/solids. Pharyngeal Within functional limits Impairment Pharyngeal Phase See oral phase comments Comments Fatigue/Endurance Endurance WNL The IDDSI Framework Protocol: IDDSI.1 Findings Swallowing Function Pharyngeal phase dysphagia Severity of Swallow Mildly impaired Impairment Prognosis Good Recommendations Instrumental Yes Assessment Swallowing Treatment Yes Frequency 1x/week Duration 3 months Recommended Solids Regular (IDDSI 7) Recommended Liquids Thin (IDDSI 0) Other Pt exhibited no overt s/s of aspiration or dysphagia Recommendations during evaluation, however per Pt report, chart review, clinical judgement and Pt hx with swallowing, ST suspects Pt with mild pharyngeal phase dysphagia. ST educated Pt on safe swallowing strategies such as slow rate, small bites/sips, consistent oral care and coughing when he feels he has to cough. ST recommends Pt have another Modified Barium Swallow test, since it has been over 3 years since his last one and d/t ST unable to rule out silent aspiration without an instrumental. ST communicated plan to patient that office will call him to schedule treatment once he has MBS completed. ST will communicate with his PCP for MBS referral and monitor scheduling for that. Pt verbalized understanding. Safety Precautions/ Remain upright (90 degrees) during all oral intake, Swallowing Upright position at least 30 minutes after meals,Small Recommendations bites and sips when eating,Slow rate; swallow between bites,Alternate liquids and solids Medication As Tolerated Recommendations Education Patient/Caregiver Described results of evaluation,Patient expressed Education understanding of evaluation,Patient expressed agreement with goals & treatment plans,Patient requires further education/training Goals Short-term Goals STG 1: Pt will tolerate prescribed diet with <5% overt s/s of aspiration/dysphagia with use of compensatory swallowing strategies and minimal cues. STG 2: Pt will participate in MBS to further guide POC and analyze swallow function. Long-term Goals LTG 1: Patient will consume safest and most efficient least restrictive diet with no clinical s/s of aspiration or dysphagia 100% of the time in order to meet primary nutrition/hydration needs.
--- NOTE | 2024-10-20 11:50 | ST.OPPOC ---
Physical, Occupational & Speech Therapy At [facility] Visit Care Team Role Provider Type Fred Payan DO Attending Provider Non-Staff Family Provider Primary Care Provider Referring Provider Address: [address] [place], [address] Speech Pathology Plan of Care Plan of Care Dates 10/20/24-01/19/[address] Payan Patient History Pt is a 69 year old male seen this date for swallow evaluation at the referral of Dr. Payan. He reports his swallowing difficulties have been going on for years. Specifically, he states difficulties swallowing dry, crumbly foods such as croutons or peanuts, which will feel caught in throat resulting in him coughing. He also reports if he drinks liquids too quick he will cough. He states this happens randomly. Pt reports PMHx significant for prostate cancer, bladder cancer, GERD which he takes medication for and utilizes a CPAP machine at night. He had a MBS completed at this facility on 06/11/21, with the following impressions: The pt presents with mild- moderate pharyngeal dysphagia secondary to reduced hyolaryngeal elevation and anterior excursion resulting in occasional incomplete airway closure allowing for penetration and aspiration of liquids. Aspiration of NTLs appeared to be silent in nature, although the pt endorsed feeling something but deliberately suppressed cough so as not to disrupt the exam. Delayed cough via HYDROLOGIST's instruction was not effective in clearing the contrast from the trachea. Additionally, mild weakness at base of tongue and pharyngeal constrictors resulted in mild pharyngeal residue, most notably at vallecula and along aryepiglottic folds. Outpatient dysphagia therapy is recommended for patient education and to increase muscular strength and airway closure to reduce risk of aspiration and worsening symptoms. The pt was educated of initial findings and recommendations, verbalized understanding and agreement. It was recommended that Pt receive outpatient speech therapy, however no documentation that he went through with this. MBS Comments The pt presents with mild-moderate pharyngeal dysphagia secondary to reduced hyolaryngeal elevation and anterior excursion resulting in occasional incomplete airway closure allowing for penetration and aspiration of liquids. Aspiration of NTLs appeared to be silent in nature, although the pt endorsed feeling something but deliberately suppressed cough so as not to disrupt the exam. Delayed cough via HYDROLOGIST's instruction was not effective in clearing the contrast from the trachea. Additionally, mild weakness at base of tongue and pharyngeal constrictors resulted in mild pharyngeal residue , most notably at vallecula and along aryepiglottic folds. Outpatient dysphagia therapy is recommended for patient education and to increase muscular strength and airway closure to reduce risk of aspiration and worsening symptoms. The pt was educated of initial findings and recommendations , verbalized understanding and agreement. Solid Recommendations Regular Additional Precautions Reduce distractions. Cough when airway feels compromised. Recommended Referrals GI Consult Short Term Goals 1. The pt will follow safe swallow strategies to reduce risk of aspiration. 2. The pt will perform exercises to improve efficiency of swallow and safety with oral intake. Short-term Goals STG 1: Pt will tolerate prescribed diet with <5% overt s/s of aspiration/dysphagia with use of compensatory swallowing strategies and minimal cues. STG 2: Pt will participate in MBS to further guide POC and analyze swallow function. Long-term Goals LTG 1: Patient will consume safest and most efficient least restrictive diet with no clinical s/s of aspiration or dysphagia 100% of the time in order to meet primary nutrition/ hydration needs. Comment: Electronically Signed by: MELIDA Arzola 10/20/24 [id number] If you are in agreement with this Plan of Care, please return a signed and dated copy. I have reviewed this Plan of Care and certify that the skilled therapy services above are required to meet the patient?s needs. Physician Signature Date Printed Name and Credentials Clinical Instructor Signature Printed Name and Credentials
--- NOTE | 2024-10-21 10:17 | ST-OP ANOTE ---
Physical, Occupational & Speech Therapy At [facility] Speech Therapy Note SUPERVISOR KNITTING attempted to call patient x2 to update PCP d/t his current PCP, Dr. Payan, on file retired in November 2023 with the number on file for that doctors office unable to find the patient in their system. SUPERVISOR KNITTING trying to contact PCP to get an order for MBS.
--- NOTE | 2024-12-10 09:19 | ST-OP ANOTE ---
Physical, Occupational & Speech Therapy At [facility] Speech Therapy Note MANAGER ATHLETICS called Pt to schedule more therapy appointments following his MBS. Pt did not answer, however MANAGER ATHLETICS LVM and provided clinic number for him to call and schedule more appointments.
--- NOTE | 2024-12-16 12:03 | ST.OPTN ---
Visit Care Team Role Provider Type Fred Payan DO Attending Provider Non-Staff Family Provider Primary Care Provider Referring Provider Address: [address] [place] [address], [id number] INBOUND SALES ADVISOR Treatment Note INBOUND SALES ADVISOR Treatment Note Start: 12/16/24 11:56 Freq: Status: Active Protocol: Document 12/16/24 11:56 MA (Rec: 12/16/24 12:03 MA Desktop) Speech Pathology Treatment Note Session Time Visit Start Time 11:30 Visit Stop Time 12:00 Total Visit Minutes 30 Visit Information Visit Number 2 Plan of Care Dates 10/20/24-01/19/25 Setting Treatment Setting Outpatient Care General Information Patient History Pt is a 69 year old male seen this date for swallow evaluation at the referral of Dr. Payan. He reports his swallowing difficulties have been going on for years. Specifically, he states difficulties swallowing dry, crumbly foods such as croutons or peanuts, which will feel caught in throat resulting in him coughing. He also reports if he drinks liquids too quick he will cough. He states this happens randomly. Pt reports PMHx significant for prostate cancer, bladder cancer, GERD which he takes medication for and utilizes a CPAP machine at night. He had a MBS completed at this facility on 06/11/21, with the following impressions: The pt presents with mild- moderate pharyngeal dysphagia secondary to reduced hyolaryngeal elevation and anterior excursion resulting in occasional incomplete airway closure allowing for penetration and aspiration of liquids. Aspiration of NTLs appeared to be silent in nature, although the pt endorsed feeling something but deliberately suppressed cough so as not to disrupt the exam. Delayed cough via INBOUND SALES ADVISOR's instruction was not effective in clearing the contrast from the trachea. Additionally, mild weakness at base of tongue and pharyngeal constrictors resulted in mild pharyngeal residue, most notably at vallecula and along aryepiglottic folds. Outpatient dysphagia therapy is recommended for patient education and to increase muscular strength and airway closure to reduce risk of aspiration and worsening symptoms. The pt was educated of initial findings and recommendations, verbalized understanding and agreement. It was recommended that Pt receive outpatient speech therapy, however no documentation that he went through with this. Subjective Identification Type Name Observations/Patient Pt arrived to therapy on time. Presentation Objective Treatment Activities Education related to MBS results, safe swallowing strategies, discharge recommendations Assessment Patient Response to Excellent Treatment Rehab Potential Excellent Impairments Swallow Identified Progress Towards Appropriate for Discharge Goals Assessment of ST reviewed MBS results with Pt, which was completed on Improvement 12/09/24 with the following results: Pt presented with mild-moderate pharyngoesophageal dysphagia characterized by weakness of the pharyngeal muscles, reverse esophageal flow of liquid to the level of the clavicles, tertiary contraction and a potential (small) hiatal hernia. Pt noted that he coughs at times when eating/drinking. If pt consumes large amounts of food/ liquids during a meal, as cough may be triggered if some esophageal contents (in retro flow) overflow through the UES near or into the laryngeal vestibule and trigger a cough. Additionally, dry crumbly foods are likely to trigger a cough if near the laryngeal vestibule/UES during swallowing. Pt was encouraged to eat/drink slowly, take frequent breaks and to stay upright after meals for a minimum of 30 minutes to allow his esophagus to empty. Additionally, pt was encouraged to be mindful of swallowing before talking and if distracted by conversation or TV, etc. Pt should return to ST for safe swallow strategy education. The results and recommendations of the MBSS were described to the pt while observing still pictures taken during the MBSS. All questions were addressed Pt reports he has received a referral for a GI consult. ST educated Pt on safe swallowing strategies, such as slow rate, small bites, reducing distractions, sitting upright when eating and drinking and staying upright at least 30 minutes after and not laying down immediately after eating/drinking. Pt verbalized understanding. ST plan to discharge Pt at this time. ST recommends Pt return to therapy if any changes occur. Reviewed with Goals,Progress Being Made,Home Exercise Program Patient Plan Therapy Discharge from Speech Therapy Recommendations
== END 2024-12-17 11:01 | disposition home or self-care (01) ==
LOC: SP 11:30
PROVIDERS: Family Provider Student in an Organized Health Care Education/Training Program; PCP Student in an Organized Health Care Education/Training Program; Referring Provider Student in an Organized Health Care Education/Training Program; Visit Provider Student in an Organized Health Care Education/Training Program
DX: R13.10 Dysphagia, unspecified (principal)
CPT/HCPCS: 92526; 92610